=== PATIENT | male | born 1940 | race Caucasian/White ===

== ENCOUNTER → 2016-12-30 | Outpatient (CLI) | payer MEDICARE, BC ==
[~2016-12-30] MED LIST: 3N1 COMMODE MC; ATOR20TA38 PO; BEN25 PO; CARV3.1260 PO; DOCU-144 PO; DONE5TAB7 PO; DULR PR; HYDR-3504 PO; LACT1CAP56 PO; LORA1TAB PO; LOSA25TA5 PO; LYRI100 PO; NA P133E3 PR; TOPI100T42 PO; TRAM50TA2 PO; WALK1EAC23 MC; WARF10TA PO
--- NOTE | 2016-12-30 16:37 | RADRPT ---
PROCEDURE: XR pelvis/left hip. CLINICAL INDICATION: Hip pain TECHNIQUE: AP pelvis/AP and lateral left hip views available for review. COMPARISON: 06/17/2016 FINDINGS: There is no change in the left total hip replacement with cerclage wires surrounding the proximal fe moral shaft. There is no evidence of loosening of the prosthesis. There is no evidence of hardware f ailure. There is no change in the heterotrophic bone formation adjacent to the left hip replacement . There is moderate to severe right hip osteoarthrosis. This is associated with joint space narrowing, subchondral sclerosis and osteophytosis. There is normal osseous mineralization. No fractures or os seous lesions are identified. The soft tissues are unremarkable. IMPRESSION: Left total hip replacement. Moderate to severe right hip osteoarthrosis. Unchanged from the previous examination RPTAT: HGDB .Chuy Hernández MD, MD Date Time Electronically viewed and signed by .Chuy Hernández MD, on 12/30/2016 16:36 .B/
== END | disposition home or self-care (01) ==
LOC: HKI 13:20
PROVIDERS: ATTEND Orthopaedic Surgery
DX: Z47.1 Aftercare following joint replacement surgery (principal); Z96.642 Presence of left artificial hip joint
CPT/HCPCS: 73502; G0463

== ENCOUNTER 2019-02-17 15:45 | Inpatient (IN) | payer MEDICARE, BC ==
[~2019-02-17] VITALS: Ht 182.9 cm; Wt 117.0 kg
[~2019-02-17 15:45] MED LIST changes: +BISA10SU75 PR; -DULR PR; +LOSA25TA12 PO; -LOSA25TA5 PO; +TOPI100T PO; -TOPI100T42 PO
[2019-02-17 16:00] VITALS: BP 118/79; PULSE 78; RESP 18
[2019-02-17] MEDS ORDERED: MAGNESIUM HYDROXIDE 30ML CUP PO PRN (16:30)
[2019-02-17] MEDS ORDERED: ACETAMINOPHEN 325 MG TAB PO PRN (16:30)
[2019-02-17] MEDS ORDERED: PENDING SANTYL ORDER FOR WOUND CARE XX PRN (16:30)
[2019-02-17 17:12] VITALS: Ht 182.9 cm; Wt 117.0 kg
[2019-02-17 19:45] VITALS: BP 123/73; PULSE 74; RESP 18
[2019-02-17] MEDS: IPRATROPIUM (NEB) 0.5 MG/2.5 ML AMP HHN SCH (20:12)
[2019-02-17] MEDS: PREGABALIN 50 MG CAP PO SCH (21:00)
[2019-02-17] MEDS: APIXABAN 5 MG TABLET PO SCH (21:05)
[2019-02-17] MEDS: ATORVASTATIN 20 MG TAB PO SCH (21:06)
[2019-02-17] MEDS: FUROSEMIDE 40 MG TAB PO SCH (21:06)
[2019-02-17] MEDS: SENNA TAB PO SCH (21:06)
[2019-02-17] MEDS: OXYBUTYNIN 5 MG TAB PO SCH (21:07)
[2019-02-17] MEDS: MEMANTINE 5 MG TAB PO SCH (21:07)
[2019-02-17] MEDS: traZODone 50 MG TAB PO SCH (21:07)
[2019-02-17] MEDS: DOCUSATE SODIUM 100 MG CAP PO SCH (21:07)
[2019-02-18] MEDS: IPRATROPIUM (NEB) 0.5 MG/2.5 ML AMP HHN SCH ×4 (01:56→21:31)
[2019-02-18 02:00] VITALS: BP 116/82; PULSE 72; RESP 18
[2019-02-18] MEDS: DOCUSATE SODIUM 100 MG CAP PO SCH ×2 (10:02→21:00)
[2019-02-18] MEDS: OXYBUTYNIN 5 MG TAB PO SCH ×2 (10:03→21:24)
[2019-02-18] MEDS: MEMANTINE 5 MG TAB PO SCH ×2 (10:03→21:24)
[2019-02-18] MEDS: APIXABAN 5 MG TABLET PO SCH ×2 (10:03→21:23)
[2019-02-18] MEDS: ASCORBIC ACID 500 MG TAB PO SCH (10:03)
[2019-02-18] MEDS: ROPINIROLE 0.25 MG TAB PO SCH (10:04)
[2019-02-18] MEDS: CYANOCOBALAMIN 500 MCG TAB PO SCH (10:04)
[2019-02-18] MEDS: PREGABALIN 50 MG CAP PO SCH ×2 (10:05→21:24)
[2019-02-18] MEDS: FUROSEMIDE 40 MG TAB PO SCH ×2 (10:17→21:23)
--- NOTE | 2019-02-18 10:26 | HP ---
DATE OF ADMISSION: 02/17/2019 CHIEF COMPLAINT: Acute respiratory failure, acute pulmonary embolism, deep vein thrombosis. HISTORY OF PRESENT ILLNESS: This is a 78-year-old male with a past medical history of coronary arter y disease, history of coronary artery bypass graft, history of atrial fibrillation, on anticoagulatio n, history of congestive heart failure, previous history of deep vein thrombosis, status post inferio r vena cava filter, who initially presented to [facility] on 01/18/2019 after he sustained a ground level fall. The patient at that time had a left femoral fracture. The patient underwent o pen reduction internal fixation. The patient was then stabilized and transferred to retirement facility. While at retirement facility, the patient then developed shortness of breath, was kadi dmitted back to [facility]. The patient had a CT angio, which showed findings of acute de ep vein thrombosis and pulmonary embolism. The patient was seen by filling winder, guard entrance registrar, was placed on anticoagulation with Eliquis. The patient was then subsequently stabilized. The patient a lso noted to have a congestive heart failure exacerbation at outside hospital, was given diuretic the rapy. The patient, however, had a significant decline in his premorbid state and also developed crit ica care myopathy. As a result, he was transferred to [facility] for continued care. Upon my evaluation of the patient at this time, he is currently stable, describing lower extremity ed carmen. He denies any hemoptysis, hematemesis or hematochezia. PAST MEDICAL HISTORY: As stated above, history of coronary artery disease, history of hypertension, history of atrial fibrillation, history of deep vein thrombosis, history of neuropathy. PAST SURGICAL HISTORY: Status post coronary artery bypass graft, status post open reduction internal fixation of left femoral fracture. FAMILY HISTORY: No family history of kidney disease. SOCIAL HISTORY: He does not drink, smoke or do drugs. MEDICATIONS: The patient's medications have been reviewed. ALLERGIES: NO KNOWN DRUG ALLERGIES. REVIEW OF SYSTEMS: A 14-point review of systems was conducted. Pertinent positives stated in HPI, o therwise negative. PHYSICAL EXAMINATION: VITAL SIGNS: Blood pressure is 116/82, respirations 18, pulse 72, temperature is 97.8. HEENT: Head is normocephalic. NECK: Supple. HEART: Regular rate. LUNGS: Show diminished breath sounds at the base. ABDOMEN: Soft, nontender to palpation without rebound or guarding. EXTREMITIES: Negative for clubbing, cyanosis. Positive edema, right greater than left. The patient 's left lower extremity also has a soft cast. DERMATOLOGIC: No rashes. MUSCULOSKELETAL: No joint effusion. NEUROLOGIC: No focal deficits. MEDICATIONS: The patient's medications have been reviewed. LABORATORY DATA: Currently pending. ASSESSMENT AND PLAN: This is a 78-year-old male who presents with: 1. Acute pulmonary embolism, right lower extremity deep vein thrombosis. The patient is currently o n full anticoagulation. Plan is to continue Eliquis. We will monitor closely. Consider hematology evaluation. 2. Acute hypoxemic respiratory failure, etiology is secondary to acute pulmonary embolism, possible congestive heart failure exacerbation. Continue medical management with supplemental oxygen. Contin ue intermittent diuretic therapy as needed. Continue anticoagulation therapy, and monitor closely. 3. History of coronary artery disease, history of coronary artery bypass graft. Continue current me dical management. Consider cardiology evaluation. 4. Hypertension. Continue current blood pressure regimen. 5. Dyslipidemia. Continue statin therapy. 6. Acute heart failure. The patient appears to be mildly decompensated. Continue diuretic regimen and monitor closely. 7. Neuropathy. 8. Restless leg syndrome. Continue Lyrica and Requip. 9. History of deep vein thrombosis with IVC filter placement. 10. Gastrointestinal and deep vein thrombosis prophylaxis. 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 Continue physical therapy and occupational therapy per rehabilitation. 12. Cognitive decline. Continue Namenda. 13. Lower extremity wound. Continue wound care. 14. Constipation. Continue current bowel regimen. 15. Left distal femur fracture status post open reduction internal fixation. Continue physical aerodynamicist apy. 16. History of aortic aneurysm. Continue to monitor. 17. Diabetes type 2. Continue to monitor, Accu-Cheks. Please note I spent an additional 30 minutes of ivle-cc-oriv time with the patient, discussing advanc ed directives and code status. The patient is FULL CODE. Dictated By: KANDI OKEEFE DO NR/NTS Conf#: [id number] DID#: [id number] CC: FELIPE GRULLON MD; MELISSA CARRINGTON DO;*EndCC*
[2019-02-18 10:27] VITALS: PULSE 54; RESP 18
[2019-02-18] MEDS: BISACODYL 10 MG SUPP PR PRN (12:48)
[2019-02-18 14:56] VITALS: BP 137/67; PULSE 58; RESP 18
--- NOTE | 2019-02-18 16:08 | CONS ---
DATE OF ADMISSION: 02/17/2019 DATE OF CONSULTATION: 02/18/2019 REHABILITATION POST-ADMISSION PHYSICIAN EVALUATION REHABILITATION IMPAIRMENT CATEGORY: Critical illness myopathy, debility status post congestive heart failure exacerbation. ACTIVE COMORBIDITIES: 1. Recent left distal femur fracture status post open reduction internal fixation. 2. Acute on chronic renal failure. 3. Acute on chronic congestive heart failure. 4. Atrial fibrillation. 5. History of non-ST elevation myocardial infarction. 6. History of deep venous thrombosis and pulmonary embolism, status post inferior vena cava filter. 7. Diabetes mellitus type 2. 8. History of aortic aneurysm. 9. Venous stasis changes. 10. Incontinent dermatitis in the sacral region. 11. Right medial malleolus ulceration. 12. Impairments in self-care and mobility. HISTORY OF PRESENT ILLNESS: The patient is a 78-year-old gentleman with a history of multiple medical comorbidities who had a recent left femur fracture requiring ORIF for which patient was transferred to a [facility] facility. The patient was noted to have increased shortness of breath at the [facility]p facility and was readmitted to [facility]. The patient was noted to have acute DVT and pulmonary embolus. The patient also noted to have congestive heart failure in addition to significant proximal weakness, presumed secondary to critical illness myopathy. The patient has now been cleared to transfer to the rehabilitation unit for comprehensive interdisciplinary rehab care. FUNCTIONAL HISTORY: Prior to recent events, he was independent in self-care tasks and mobility. Currently, he requires maximal assist for self-care and mobility tasks. I have reviewed the preadmission screen and patient's current functional status is consistent with the preadmission screen. FAMILY AND SOCIAL HISTORY: The patient lives at home with family and hopes to return there upon discharge. PAST MEDICAL HISTORY: 1. Coronary artery disease with history of non-ST elevation NC, history of coronary artery bypass graft. 2. Atrial fibrillation. 3. Hypertension. 4. History of deep venous thrombosis and pulmonary embolus with inferior vena cava filter. 5. Neuropathy. 6. Hypertension. 7. Diabetes mellitus type 2. 8. History of aortic aneurysm. CURRENT MEDICATIONS: 1. Albuterol inhaler. 2. Eliquis 5 mg p.o. b.i.d. 3. Vitamin C 1000 mg p.o. daily. 4. Lipitor 20 mg p.o. q.p.m. 5. Coreg 3.125 mg p.o. b.i.d. 6. Lasix 40 mg p.o. b.i.d. 7. Bryan p.r.n. 8. Atrovent inhaler. 9. Namenda 5 mg p.o. b.i.d. 10. Ditropan 5 mg p.o. b.i.d. 11. Lyrica 200 mg p.o. b.i.d. 12. Senokot. 13. Desyrel 150 mg p.o. at bedtime. 14. Requip 0.5 mg p.o. daily. ALLERGIES: The patient with no known drug allergies. PHYSICAL EXAMINATION: VITAL SIGNS: He is currently afebrile with stable vital signs. HEENT: Extraocular motions appear intact. Oropharynx clear. NECK: Supple. LUNGS: Clear anteriorly. CARDIAC: S1, S2. ABDOMEN: Soft, nontender, positive bowel sounds. Extremity exam does reveal venous stasis changes and right medial malleolar ulceration, left lower extremity skin tear. NEUROLOGIC: He is awake and alert and oriented x3, can follow simple 1-step commands. He demonstrates antigravity strength in bilateral upper extremity and the right lower extremity. Dorsiflexion and plantar flexion intact on the left. PLAN: The patient has been admitted for comprehensive interdisciplinary acute rehab and is anticipated to tolerate 3 hours of daily therapy in divided doses for at least 5/7 days a week. The treatment plan will include: 1. Physical therapy to focus on bed mobility, transfers, wheelchair mobility, and limited household ambulation with the goal of having patient reach a min to standby assist level. 2. Occupational therapy to focus on hygiene, grooming, dressing, bathing, and toileting activities with goal of having patient reach standby assist level. 3. Rehabilitation nursing for carryover of therapeutic interventions, the goal of continent of bowel and bladder, and the goal of pain adequately managed on oral medications. We will also work on improved skin integrity. ESTIMATED LENGTH OF STAY: 14 days. DISPOSITION GOAL: Home. REHABILITATION BARRIER: Pain. INTERVENTION FOR BARRIER: Interdisciplinary approach. I acknowledge that I acknowledge that I performed a full physical examination on this patient within 24 hours of admission to the rehabilitation unit and believe the patient is a good candidate for comprehensive interdisciplinary rehab care and is anticipated to make reasonable goals in a reasonable period of time as outlined above. Dictated By: FELIPE DUMONT/BOONE Conf#: [id number] [facility]#: [id number] DOUG
[2019-02-18 19:30] VITALS: BP 126/84; PULSE 80; RESP 18
[2019-02-18] MEDS: SENNA TAB PO SCH (21:00)
[2019-02-18] MEDS: ATORVASTATIN 20 MG TAB PO SCH (21:23)
[2019-02-18] MEDS: traZODone 50 MG TAB PO SCH (21:24)
[2019-02-19] MEDS: IPRATROPIUM (NEB) 0.5 MG/2.5 ML AMP HHN SCH ×4 (01:54→20:47)
[2019-02-19 02:00] VITALS: BP 122/75; PULSE 68; RESP 18
[2019-02-19 07:00] VITALS: BP 136/76; PULSE 71; RESP 20
--- NOTE | 2019-02-19 08:40 | PN ---
DATE: 02/19/2019 SUBJECTIVE: The patient was stable overnight. No events noted. No hemoptysis, hematemesis or hemat ochezia. OBJECTIVE: VITAL SIGNS: Blood pressure is 122/74, respirations 18, pulse 68, temperature 98.2. HEENT: Head is normocephalic. NECK: Supple. HEART: Regular rate. LUNGS: Show diminished breath sounds at the base. ABDOMEN: Soft, nontender to palpation without rebound or guarding. EXTREMITIES: Negative for clubbing, cyanosis. Positive edema. DERMATOLOGIC: No rashes. MUSCULOSKELETAL: No joint effusion. NEUROLOGIC: No change in exam. MEDICATIONS: Reviewed. LABORATORY DATA: From 02/19/2019 was reviewed. ASSESSMENT AND PLAN: 1. Acute pulmonary embolism, acute right lower extremity deep vein thrombosis. Etiology is felt to be secondary to recent hip fracture, however, the patient does have a history of multiple DVTs. Uncl ear if there is underlying hypercoagulable disorder. We will consider hematology evaluation. Contin ue Eliquis. Monitor closely. 2. Acute hypoxemic respiratory failure secondary to acute pulmonary embolism, congestive heart failu re exacerbation. The patient is currently stable on 3 liters nasal cannula. Continue current medica l management. Continue intermittent diuretic therapy. Continue anticoagulation. 3. Alkalosis. Etiology may be compensatory versus primary metabolic due to diuretic therapy. Plan is to check an ABG. We will consider starting the patient Diamox. Monitor closely. 4. Coronary artery disease, status post coronary artery bypass graft. Continue medical management. 5. Hypertension. Continue current blood pressure regimen. 6. Dyslipidemia. Continue statin therapy. 7. Acute diastolic heart failure. The patient is mildly decompensated, continue current diuretic re gimen. Adjust as stated above. 8. Neuropathy/restless leg syndrome. Continue Lyrica and Requip. 9. History of deep vein thrombosis with inferior vena cava filter placement. 10. Gastrointestinal and deep vein thrombosis prophylaxis. 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 Continue physical therapy and occupation therapy. 12. Cognitive decline. Continue Namenda. 13. Lower extremity wounds. Continue wound care. 14. Constipation. Continue current bowel regimen. 15. Left distal femoral fracture status post open reduction internal fixation. 16. History of aortic aneurysm. 17. Diabetes type 2. Continue to monitor. Continue Accu-Cheks. Dictated By: KANDI OKEEFE DO NR/NTS Conf#: [id number] [facility]#: [id number] CC: MELISSA CARRINGTON DO; FELIPE GRULLON MD;*[facility]*
[2019-02-19] MEDS ORDERED: ASCORBIC ACID 250 MG TAB PO SCH (09:00)
[2019-02-19] MEDS: PREGABALIN 50 MG CAP PO SCH ×2 (10:28→21:33)
[2019-02-19] MEDS: MULTIVITAMINS THERAPEUTIC TAB PO SCH (10:29)
[2019-02-19] MEDS: ZINC SULFATE 220 MG CAP PO SCH (10:30)
[2019-02-19] MEDS: CYANOCOBALAMIN 500 MCG TAB PO SCH (10:30)
[2019-02-19] MEDS: OXYBUTYNIN 5 MG TAB PO SCH ×2 (10:31→21:34)
[2019-02-19] MEDS: ROPINIROLE 0.25 MG TAB PO SCH (10:31)
[2019-02-19] MEDS: MEMANTINE 5 MG TAB PO SCH ×2 (10:32→21:34)
[2019-02-19] MEDS: APIXABAN 5 MG TABLET PO SCH ×2 (10:32→21:34)
[2019-02-19] MEDS: ASCORBIC ACID 500 MG TAB PO SCH (10:39)
[2019-02-19] MEDS: ACETAZOLAMIDE 250 MG TAB PO SCH ×2 (10:43→21:34)
[2019-02-19] MEDS: DOCUSATE SODIUM 100 MG CAP PO SCH ×2 (10:47→21:33)
--- NOTE | 2019-02-19 13:48 | CONS ---
Assessment/Plan Assessment/Plan Hospital Course (Demo Recall) Acute PE/DVT: occurred on coumadin. Now Eliquis Acute on chronic systolic CHF: being diuresed Paroxysmal afib: not previously present, occurred during recent hospitalization. On Eliquis. Appears to be in sinus on exam CAD s/p CABG 2009 AAA: now >5cm per pt and plan for EVAR soon with Dr. Abreu Ischemic cardiomyopathy EF 40-45% Trifascicular block h/o DVT previously on coumadin and s/p IVC HTN CKD (Cr baseline 1.3) -continue bumex 1mg IV BID -Eliquis 5mg BID -lipitor 20mg -coreg 3.125mg BID Consultation Date/Type/Reason Admit Date/Time February 17, 2019 at 15:45 Date of Consultation: February 19, 2019 Type of Consult Cardiology Reason for Consultation CHF Requesting Provider: KANDI OKEEFE DO Date/Time of Note DATE: 02/19/19 TIME: 13:39 Hx of Present Illness 78 yo M with a h/o CAD s/p CABG 2009, AAA (now >5cm per pt and plan for EVAR soon), chronic systolic CHF, ischemic cardiomyopathy EF 40-45%, trifascicular block, h/o DVT previously on coumadin and s/p IVC, HTN, CKD (Cr baseline 1.3), who is here for rehab. He recently had a fall and left femur fracture for which he had ORIF at [facility]. He was sent to a SNF where he developed dyspnea and was found to have recurrent DVT and PE even on therapeutic coumadin. He still has dyspnea. No chest pain. Leg edema worse than baseline. per hPI Past Medical History per HPI Home Meds Active Scripts Front Wheel Walker* (Front Wheel Walker*) 1 Each Dme, 1 EACH [facility] DIRECTED, #1 DME 0 Refills Prov:KAZ HERNANDEZ 05/19/15 3 N 1 Commode* (3 N 1 Commode*) 1 Each Dme, 1 EACH MC DIRECTED, #1 DME 0 Refills Prov:KAZ HERNANDEZ 05/19/15 Warfarin Sodium* (Coumadin*) 10 Mg Tablet, 10 MG PO DAILY PRN for PAIN, #90 TAB Prov:KAZ HERNANDEZ 05/19/15 Tramadol HCl (Tramadol HCl) 50 Mg Tab, 50 MG PO Q6, #60 TAB Prov:KAZ HERNANDEZ 05/19/15 Hydrocodone Bit-Acetaminophen (Hydrocodone-APAP) 1 Tab Tab, 1 TAB PO Q4H PRN for PAIN LEVEL 1-5, #90 Prov:KAZ HERNANDEZ 05/19/15 Pregabalin* (Lyrica*) 100 Mg Cap, 400 MG PO DAILY, #60 Prov:KAZ HERNANDEZ 05/19/15 Na Phos,M-B/Na Phos,Di-Ba (Bl Enema Single) 133 Ml Soln, 133 ML WI DAILY PRN for CONSTIPATION, #60 ENEMA Prov:KAZ HERNANDEZ 05/19/15 Docusate Sodium* (Colace*) 100 Mg Cap, 100 MG PO BID, #60 Prov:KAZ HERNANDEZ 05/19/15 Diphenhydramine Hcl* (Benadryl*) 25 Mg Cap, 25 MG PO Q6H PRN for PRURITUS, #60 CAP Prov:KAZ HERNANDEZ 05/19/15 Bisacodyl* (Bisacodyl*) 10 Mg Supp, 10 MG WI Q12H PRN for CONSTIPATION, #30 SUPP Prov:KAZ HERNANDEZ 05/19/15 Reported Medications Lactobacillus Combo No.11 (Probiotic) 1 Each Cap.sprink, 1 CAP PO DAILY, CAP 05/16/15 Lorazepam* (Lorazepam*) 1 Mg Tablet, 1 MG PO HS PRN for SLEEP, TAB 05/16/15 Losartan Potassium* (Losartan Potassium*) 25 Mg Tablet, 25 MG PO DAILY, TAB 05/16/15 Donepezil* (Donepezil*) 5 Mg Tablet, 10 MG PO DAILY, TAB 01/19/15 Carvedilol* (Carvedilol*) 3.125 Mg Tablet, 3.125 MG PO BID, TAB 01/19/15 Atorvastatin Calcium* (Atorvastatin Calcium*) 20 Mg Tablet, 20 MG PO HS, TAB 01/19/15 Topiramate* (Topamax*) 100 Mg Tablet, 100 MG PO HS 06/10/13 Medications Current Medications Docusate Sodium (Colace) 100 mg BID PO Last administered on 02/19/19at 10:47; Admin Dose 100 MG; Start 02/17/19 at 21:00 Senna (Senokot) 1 tab HS PO Last administered on 02/17/19at 21:06; Admin Dose 1 TAB; Start 02/17/19 at 21:00 Magnesium Hydroxide (Milk Of Mag) 30 ml BID PRN PO CONSTIPATION; Start 02/17/19 at 16:30 Lactulose (Enulose) 20 gm DAILY PRN PO CONSTIPATION; Start 02/17/19 at 16:30 Bisacodyl (Dulcolax Supp) 10 mg DAILY PRN WI CONSTIPATION Last administered on 02/18/19at 12:48; Admin Dose 10 MG; Start 02/17/19 at 16:30 Acetaminophen (Tylenol Tab) 650 mg Q4H PRN PO PAIN; Start 02/17/19 at 16:30 Miscellaneous Information (Pending Santyl Order For Wound Care) This patient h a... PRN PRN XX WOUND CARE; Start 02/17/19 at 16:30 Apixaban (Eliquis) 5 mg BID PO Last administered on 02/19/19 10:32; Admin Dose 5 MG; Start 02/17/19 at 21:00 Ascorbic Acid (Vitamin C) 1,000 mg DAILY PO Last administered on 02/19/19 10:39; Admin Dose 1,000 MG; Start 02/18/19 at 09:00 Atorvastatin Calcium (Lipitor) 20 mg HS PO Last administered on 02/18/19 21:23; Admin Dose 20 MG; Start 02/17/19 at 21:00 Carvedilol (Coreg) 3.125 mg BID PO Last administered on 02/19/19 10:34; Admin Dose 3.125 MG; Start 02/17/19 at 21:00 Cyanocobalamin (Vitamin B12) 1,000 mcg DAILY PO Last administered on 02/19/19 10:30; Admin Dose 1,000 MCG; Start 02/18/19 at 09:00 Acetaminophen/ Hydrocodone Bitart ([place] (10/325)) 1 tab Q12H PRN PO MODERATE PAIN LEVEL 4-6; Start 02/17/19 at 17:00 Ipratropium [place] (Atrovent 0.02% (Neb)) 0.5 mg Q6H RESP THERAPY HHN Last administered on 02/19/19 09:26; Admin Dose 0.5 MG; Start 02/17/19 at 20:00 Memantine (Namenda) 5 mg BID PO Last administered on 02/19/19 10:32; Admin Dose 5 MG; Start 02/17/19 at 21:00 Oxybutynin Chloride (Ditropan) 5 mg BID PO Last administered on 02/19/19 10:31; Admin Dose 5 MG; Start 02/17/19 at 21:00 Pregabalin (Lyrica) 200 mg BID PO Last administered on 02/19/19 10:28; Admin Dose 200 MG; Start 02/17/19 at 21:00 Trazodone HCl (Desyrel) 150 mg HS PO Last administered on 02/18/19 21:24; Admin Dose 150 MG; Start 02/17/19 at 21:00 Ropinirole HCl (Requip) 0.5 mg DAILY PO Last administered on 02/19/19 10:31; Admin Dose 0.5 MG; Start 02/18/19 at 09:00 Multivitamins Therapeutic (Theragran) 1 tab DAILY PO Last administered on 02/19/19 10:29; Admin Dose 1 TAB; Start 02/19/19 at 09:00 Zinc Sulfate (Zinc Sulfate) 220 mg DAILY PO Last administered on 02/19/19 10:30; Admin Dose 220 MG; Start 02/19/19 at 09:00 Acetazolamide (Diamox) 250 mg BID PO Last administered on 02/19/19 10:43; Admin Dose 250 MG; Start 02/19/19 at 09:00 Bumetanide (Bumex) 1 mg BID DIURETICS IV ; Start 02/19/19 at 18:00 Patient Own Medication 1 ea DAILY PRN PO CONSTIPATION; Start 02/19/19 at 12:00 Allergies: Coded Allergies: No Known Allergy (Unverified , 05/16/15) Social History Smoking Status: Former smoker Exam/Review of Systems Vital Signs Vitals Vital Signs Date Temp Pulse Resp B/P (MAP) Pulse Ox O2 O2 Flow FiO2 Time Delivery Rate 02/19/19 60 20 92 Nasal 2.0 09:34 Cannula 02/19/19 97.2 136/76 07:00 (96) Intake and Output 02/18/19 02/18/19 02/19/19 1515:00 23:00 07:00 IntakeIntake Total 1250 ml 120 ml 250 ml OutputOutput Total 1 ml BalanceBalance 1250 ml 119 ml 250 ml Exam Constitutional: alert, oriented Psych: no complaints, nl mood/affect Head: normocephalic, atraumatic Neck: jvd (9cm) Respiratory: crackles/rales (mild at bases); No clear to auscultation Cardiovascular: edema (2+), systolic murmur (2/6 AMRIT); No regular rate and rhythm Gastrointestinal: soft, non-tender; No distended Musculoskeletal: No nl extremities to inspection Neurological: nl mental status, nl speech Labs Result Diagram: 02/19/1955402/19/19 0555 Results 24hrs Laboratory Tests Test 02/18/19 14:25 02/19/19 05:55 White Blood Count 7.4 6.1 Red Blood Count 4.00 #L 3.72 L Hemoglobin 12.5 #L 11.6 L Hematocrit 39.5 #L 36.9 L Mean Corpuscular Volume 98.8 99.2 Mean Corpuscular Hemoglobin 31.3 31.2 Mean Corpuscular Hemoglobin Concent 31.6 L 31.4 L Red Cell Distribution Width 15.9 H 16.2 H Platelet Count 130 L 121 L Mean Platelet Volume 13.0 #H 12.1 H Immature Granulocytes % 0.700 H 0.200 Neutrophils % 76.8 68.5 Lymphocytes % 9.5 L 16.5 Monocytes % 11.6 H 12.9 H Eosinophils % 1.1 1.6 Basophils % 0.3 0.3 Nucleated Red Blood Cells % 0.0 0.0 Immature Granulocytes # 0.050 H 0.010 Neutrophils # 5.7 4.2 Lymphocytes # 0.7 L 1.0 Monocytes # 0.9 0.8 Eosinophils # 0.1 0.1 Basophils # 0.0 0.0 Nucleated Red Blood Cells # 0.0 0.0 Sodium Level 142 Potassium Level 4.2 Chloride Level 94 L Carbon Dioxide Level 42 *H Anion Gap 6 Blood Urea Nitrogen 31 H Creatinine 1.17 Est Glomerular Filtrat Rate mL/min Glucose Level 130 Calcium Level 10.0 Phosphorus Level 3.9 Magnesium Level 2.3 Medications Medications Current Medications Docusate Sodium (Colace) 100 mg BID PO Last administered on 02/19/19at 10:47; Admin Dose 100 MG; Start 02/17/19 at 21:00 Senna (Senokot) 1 tab HS PO Last administered on 02/17/19at 21:06; Admin Dose 1 TAB; Start 02/17/19 at 21:00 Magnesium Hydroxide (Milk Of Mag) 30 ml BID PRN PO CONSTIPATION; Start 02/17/19 at 16:30 Lactulose (Enulose) 20 gm DAILY PRN PO CONSTIPATION; Start 02/17/19 at 16:30 Bisacodyl (Dulcolax Supp) 10 mg DAILY PRN WI CONSTIPATION Last administered on 02/18/19at 12:48; Admin Dose 10 MG; Start 02/17/19 at 16:30 Acetaminophen (Tylenol Tab) 650 mg Q4H PRN PO PAIN; Start 02/17/19 at 16:30 Miscellaneous Information (Pending Santyl Order For Wound Care) This patient cornejo... PRN PRN XX WOUND CARE; Start 02/17/19 at 16:30 Apixaban (Eliquis) 5 mg BID PO Last administered on 02/19/19 10:32; Admin Dose 5 MG; Start 02/17/19 at 21:00 Ascorbic Acid (Vitamin C) 1,000 mg DAILY PO Last administered on 02/19/19 10: 39; Admin Dose 1,000 MG; Start 02/18/19 at 09:00 Atorvastatin Calcium (Lipitor) 20 mg HS PO Last administered on 02/18/19 21:23; Admin Dose 20 MG; Start 02/17/19 at 21:00 Carvedilol (Coreg) 3.125 mg BID PO Last administered on 02/19/19 10:34; Admin Dose 3.125 MG; Start 02/17/19 at 21:00 Cyanocobalamin (Vitamin B12) 1,000 mcg DAILY PO Last administered on 02/19/19 10:30; Admin Dose 1,000 MCG; Start 02/18/19 at 09:00 Acetaminophen/ Hydrocodone Bitart ([place] (10/325)) 1 tab Q12H PRN PO MODERATE PAIN LEVEL 4-6; Start 02/17/19 at 17:00 Ipratropium [place] (Atrovent 0.02% (Neb)) 0.5 mg Q6H RESP THERAPY HHN Last administered on 02/19/19 09:26; Admin Dose 0.5 MG; Start 02/17/19 at 20:00 Memantine (Namenda) 5 mg BID PO Last administered on 02/19/19 10:32; Admin Dose 5 MG; Start 02/17/19 at 21:00 Oxybutynin Chloride (Ditropan) 5 mg BID PO Last administered on 02/19/19 10:31; Admin Dose 5 MG; Start 02/17/19 at 21:00 Pregabalin (Lyrica) 200 mg BID PO Last administered on 02/19/19 10:28; Admin Dose 200 MG; Start 02/17/19 at 21:00 Trazodone HCl (Desyrel) 150 mg HS PO Last administered on 02/18/19 21:24; Admin Dose 150 MG; Start 02/17/19 at 21:00 Ropinirole HCl (Requip) 0.5 mg DAILY PO Last administered on 02/19/19 10:31; Admin Dose 0.5 MG; Start 02/18/19 at 09:00 Multivitamins Therapeutic (Theragran) 1 tab DAILY PO Last administered on 02/19/19 10:29; Admin Dose 1 TAB; Start 02/19/19 at 09:00 Zinc Sulfate (Zinc Sulfate) 220 mg DAILY PO Last administered on 02/19/19 10:30; Admin Dose 220 MG; Start 02/19/19 at 09:00 Acetazolamide (Diamox) 250 mg BID PO Last administered on 02/19/19 10:43; Admin Dose 250 MG; Start 02/19/19 at 09:00 Bumetanide (Bumex) 1 mg BID DIURETICS IV ; Start 02/19/19 at 18:00 Patient Own Medication 1 ea DAILY PRN PO CONSTIPATION; Start 02/19/19 at 12:00 BIENVENIDO CAMARENA February 19, 2019 13:48
[2019-02-19 14:00] VITALS: BP 113/74; PULSE 82; RESP 20
--- NOTE | 2019-02-19 14:09 | PN ---
Date/Time of Note Date/Time of Note DATE: 02/19/19 TIME: 14:08 Subjective Up to chair Objective Vital Signs Date Temp Pulse Resp B/P (MAP) Pulse Ox O2 O2 Flow FiO2 Time Delivery Rate 02/19/19 60 20 92 Nasal 2.0 09:34 Cannula 02/19/19 97.2 136/76 07:00 (96) Intake and Output 02/18/19 02/18/19 02/19/19 1515:00 23:00 07:00 IntakeIntake Total 1250 ml 120 ml 250 ml OutputOutput Total 1 ml BalanceBalance 1250 ml 119 ml 250 ml Exam pulm-cta abd-soft max x 2 Results/Medications Result Diagram: 02/19/19 0555 02/19/19 0555 Results 24 hrs Laboratory Tests Test 02/18/19 14:25 02/19/19 05:55 White Blood Count 7.4 6.1 Red Blood Count 4.00 #L 3.72 L Hemoglobin 12.5 #L 11.6 L Hematocrit 39.5 #L 36.9 L Mean Corpuscular Volume 98.8 99.2 Mean Corpuscular Hemoglobin 31.3 31.2 Mean Corpuscular Hemoglobin Concent 31.6 L 31.4 L Red Cell Distribution Width 15.9 H 16.2 H Platelet Count 130 L 121 L Mean Platelet Volume 13.0 #H 12.1 H Immature Granulocytes % 0.700 H 0.200 Neutrophils % 76.8 68.5 Lymphocytes % 9.5 L 16.5 Monocytes % 11.6 H 12.9 H Eosinophils % 1.1 1.6 Basophils % 0.3 0.3 Nucleated Red Blood Cells % 0.0 0.0 Immature Granulocytes # 0.050 H 0.010 Neutrophils # 5.7 4.2 Lymphocytes # 0.7 L 1.0 Monocytes # 0.9 0.8 Eosinophils # 0.1 0.1 Basophils # 0.0 0.0 Nucleated Red Blood Cells # 0.0 0.0 Sodium Level 142 Potassium Level 4.2 Chloride Level 94 L Carbon Dioxide Level 42 *H Anion Gap 6 Blood Urea Nitrogen 31 H Creatinine 1.17 Est Glomerular Filtrat Rate mL/min Glucose Level 130 Calcium Level 10.0 Phosphorus Level 3.9 Magnesium Level 2.3 Medications Current Medications Docusate Sodium (Colace) 100 mg BID PO Last administered on 02/19/19 10:47; Admin Dose 100 MG; Start 02/17/19 at 21:00 Senna (Senokot) 1 tab HS PO Last administered on 02/17/19 21:06; Admin Dose 1 TAB; Start 02/17/19 at 21:00 Magnesium Hydroxide (Milk Of Mag) 30 ml BID PRN PO CONSTIPATION; Start 02/17/19 at 16:30 Lactulose (Enulose) 20 gm DAILY PRN PO CONSTIPATION; Start 02/17/19 at 16:30 Bisacodyl (Dulcolax Supp) 10 mg DAILY PRN [place] CONSTIPATION Last administered on 02/18/19 12:48; Admin Dose 10 MG; Start 02/17/19 at 16:30 Acetaminophen (Tylenol Tab) 650 mg Q4H PRN PO PAIN; Start 02/17/19 at 16:30 Miscellaneous Information [facility] This patient cornejo... PRN PRN XX WOUND CARE; Start 02/17/19 at 16:30 Apixaban (Eliquis) 5 mg BID PO Last administered on 02/19/19 10:32; Admin Dose 5 MG; Start 02/17/19 at 21:00 Ascorbic Acid (Vitamin C) 1,000 mg DAILY PO Last administered on 02/19/19 10:39; Admin Dose 1,000 MG; Start 02/18/19 at 09:00 Atorvastatin Calcium (Lipitor) 20 mg HS PO Last administered on 02/18/19 21:23; Admin Dose 20 MG; Start 02/17/19 at 21:00 Carvedilol (Coreg) 3.125 mg BID PO Last administered on 02/19/19 10:34; Admin Dose 3.125 MG; Start 02/17/19 at 21:00 Cyanocobalamin (Vitamin B12) 1,000 mcg DAILY PO Last administered on 02/19/19 10:30; Admin Dose 1,000 MCG; Start 02/18/19 at 09:00 Acetaminophen/ Hydrocodone Bitart ([place] (10/325)) 1 tab Q12H PRN PO MODERATE PAIN LEVEL 4-6; Start 02/17/19 at 17:00 Ipratropium [place] (Atrovent 0.02% (Neb)) 0.5 mg Q6H RESP THERAPY HHN Last administered on 02/19/19 09:26; Admin Dose 0.5 MG; Start 02/17/19 at 20:00 Memantine (Namenda) 5 mg BID PO Last administered on 02/19/19 10:32; Admin Dose 5 MG; Start 02/17/19 at 21:00 Oxybutynin Chloride (Ditropan) 5 mg BID PO Last administered on 02/19/19 10:31; Admin Dose 5 MG; Start 02/17/19 at 21:00 Pregabalin (Lyrica) 200 mg BID PO Last administered on 02/19/19 10:28; Admin Dose 200 MG; Start 02/17/19 at 21:00 Trazodone HCl (Desyrel) 150 mg HS PO Last administered on 02/18/19 21:24; Admin Dose 150 MG; Start 02/17/19 at 21:00 Ropinirole HCl (Requip) 0.5 mg DAILY PO Last administered on 02/19/19 10:31; Admin Dose 0.5 MG; Start 02/18/19 at 09:00 Multivitamins Therapeutic (Theragran) 1 tab DAILY PO Last administered on 02/19/19 10:29; Admin Dose 1 TAB; Start 02/19/19 at 09:00 Zinc Sulfate (Zinc Sulfate) 220 mg DAILY PO Last administered on 02/19/19 10:30; Admin Dose 220 MG; Start 02/19/19 at 09:00 Acetazolamide (Diamox) 250 mg BID PO Last administered on 02/19/19 10:43; Admin Dose 250 MG; Start 02/19/19 at 09:00 Bumetanide (Bumex) 1 mg BID DIURETICS IV ; Start 02/19/19 at 18:00 Patient Own Medication 1 ea DAILY PRN PO CONSTIPATION; Start 02/19/19 at 12:00 Assessment/Plan Additional Assessment/Plan rehab- Critical illness myopathy, debility status post congestive heart failure exacerbation. Continue rehab program Recent left distal femur fracture status post open reduction internal fixation. Acute on chronic renal failure. Acute on chronic congestive heart failure. Atrial fibrillation. History of non-ST elevation myocardial infarction. History of deep venous thrombosis and pulmonary embolism, status post inferior vena cava filter. Diabetes mellitus type 2. History of aortic aneurysm. Venous stasis changes. Incontinent, Moisture associated dermatitis in the sacral region. Right medial malleolus ulceration. FELIPE GRULLON MD February 19, 2019 14:09
[2019-02-19] MEDS: BUMETANIDE 1 MG INJ IV SCH (18:52)
[2019-02-19 20:00] VITALS: BP 144/80; PULSE 84; RESP 18
[2019-02-19] MEDS: ATORVASTATIN 20 MG TAB PO SCH (21:33)
[2019-02-19] MEDS: SENNA TAB PO SCH (21:34)
[2019-02-19] MEDS: traZODone 50 MG TAB PO SCH (21:35)
[2019-02-20] MEDS: IPRATROPIUM (NEB) 0.5 MG/2.5 ML AMP HHN SCH ×4 (01:21→20:37)
[2019-02-20 02:00] VITALS: BP 107/77; PULSE 60; RESP 18
[2019-02-20] MEDS: BUMETANIDE 1 MG INJ IV SCH ×2 (06:55→17:31)
[2019-02-20 07:30] VITALS: BP 150/80; PULSE 52; RESP 20
--- NOTE | 2019-02-20 08:22 | PN ---
Date/Time of Note Date/Time of Note DATE: 02/20/19 TIME: 08:22 Subjective No new complaints Objective Vital Signs Date Temp Pulse Resp B/P (MAP) Pulse Ox O2 O2 Flow FiO2 Time Delivery Rate 02/20/19 97.9 60 18 107/77 99 Room Air 02:00 (87) 02/20/19 2.0 01:20 Intake and Output 02/19/19 02/19/19 02/20/19 1515:00 23:00 07:00 IntakeIntake Total 400 ml 800 ml 360 ml OutputOutput Total 400 ml BalanceBalance 400 ml 400 ml 360 ml Exam max of 2 people transfer pulm-cta Results/Medications Result Diagram: 02/19/19 0555 02/19/19 0555 Medications Current Medications Docusate Sodium (Colace) 100 mg BID PO Last administered on 02/19/19 21:33; Admin Dose 100 MG; Start 02/17/19 at 21:00 Senna (Senokot) 1 tab HS PO Last administered on 02/19/19 21:34; Admin Dose 1 TAB; Start 02/17/19 at 21:00 Magnesium Hydroxide (Milk Of Mag) 30 ml BID PRN PO CONSTIPATION; Start 02/17/19 at 16:30 Lactulose (Enulose) 20 gm DAILY PRN PO CONSTIPATION; Start 02/17/19 at 16:30 Bisacodyl (Dulcolax Supp) 10 mg DAILY PRN [place] CONSTIPATION Last administered on 02/18/19at 12:48; Admin Dose 10 MG; Start 02/17/19 at 16:30 Acetaminophen (Tylenol Tab) 650 mg Q4H PRN PO PAIN; Start 02/17/19 at 16:30 Miscellaneous Information (Pending Santyl Order For Wound Care) This patient cornejo... PRN PRN XX WOUND CARE; Start 02/17/19 at 16:30 Apixaban (Eliquis) 5 mg BID PO Last administered on 02/19/19 21:34; Admin Dose 5 MG; Start 02/17/19 at 21:00 Ascorbic Acid (Vitamin C) 1,000 mg DAILY PO Last administered on 02/19/19at 10:39; Admin Dose 1,000 MG; Start 02/18/19 at 09:00 Atorvastatin Calcium (Lipitor) 20 mg HS PO Last administered on 02/19/19 21:33; Admin Dose 20 MG; Start 02/17/19 at 21:00 Carvedilol (Coreg) 3.125 mg BID PO Last administered on 02/19/19 21:34; Admin Dose 3.125 MG; Start 02/17/19 at 21:00 Cyanocobalamin (Vitamin B12) 1,000 mcg DAILY PO Last administered on 02/19/19 10:30; Admin Dose 1,000 MCG; Start 02/18/19 at 09:00 Acetaminophen/ Hydrocodone Bitart ([place] (10/325)) 1 tab Q12H PRN PO MODERATE PAIN LEVEL 4-6; Start 02/17/19 at 17:00 Ipratropium [place] (Atrovent 0.02% (Neb)) 0.5 mg Q6H RESP THERAPY HHN Last administered on 02/20/19 08:13; Admin Dose 0.5 MG; Start 02/17/19 at 20:00 Memantine (Namenda) 5 mg BID PO Last administered on 02/19/19 21:34; Admin Dose 5 MG; Start 02/17/19 at 21:00 Oxybutynin Chloride (Ditropan) 5 mg BID PO Last administered on 02/19/19 21:34; Admin Dose 5 MG; Start 02/17/19 at 21:00 Pregabalin (Lyrica) 200 mg BID PO Last administered on 02/19/19 21:33; Admin Dose 200 MG; Start 02/17/19 at 21:00 Trazodone HCl (Desyrel) 150 mg HS PO Last administered on 02/19/19 21:35; Admin Dose 150 MG; Start 02/17/19 at 21:00 Ropinirole HCl (Requip) 0.5 mg DAILY PO Last administered on 02/19/19 10:31; Admin Dose 0.5 MG; Start 02/18/19 at 09:00 Multivitamins Therapeutic (Theragran) 1 tab DAILY PO Last administered on 02/19/19 10:29; Admin Dose 1 TAB; Start 02/19/19 at 09:00 Zinc Sulfate (Zinc Sulfate) 220 mg DAILY PO Last administered on 02/19/19 10:30; Admin Dose 220 MG; Start 02/19/19 at 09:00 Acetazolamide (Diamox) 250 mg BID PO Last administered on 02/19/19at 21:34; Admin Dose 250 MG; Start 02/19/19 at 09:00 Bumetanide (Bumex) 1 mg BID DIURETICS IV Last administered on 02/20/19at 06:55; Admin Dose 1 MG; Start 02/19/19 at 18:00 Patient Own Medication 1 ea DAILY PRN PO CONSTIPATION; Start 02/19/19 at 12:00 Assessment/Plan Additional Assessment/Plan rehab- Critical illness myopathy, debility status post congestive heart failure exacerbation. Continue rehab treatment plan Recent left distal femur fracture status post open reduction internal fixation. Acute on chronic renal failure. Acute on chronic congestive heart failure. Atrial fibrillation. History of non-ST elevation myocardial infarction. History of deep venous thrombosis and pulmonary embolism, status post inferior vena cava filter. Diabetes mellitus type 2. History of aortic aneurysm. Venous stasis changes. Incontinent, Moisture associated dermatitis in the sacral region. Right medial malleolus ulceration. FELIPE GRULLON MD February 20, 2019 08:22
[2019-02-20] MEDS: ZINC SULFATE 220 MG CAP PO SCH (09:12)
[2019-02-20] MEDS: ASCORBIC ACID 500 MG TAB PO SCH (09:12)
[2019-02-20] MEDS: MULTIVITAMINS THERAPEUTIC TAB PO SCH (09:12)
[2019-02-20] MEDS: APIXABAN 5 MG TABLET PO SCH ×2 (09:13→20:46)
[2019-02-20] MEDS: PREGABALIN 50 MG CAP PO SCH ×2 (09:13→20:45)
[2019-02-20] MEDS: ACETAZOLAMIDE 250 MG TAB PO SCH ×2 (09:13→20:46)
[2019-02-20] MEDS: CYANOCOBALAMIN 500 MCG TAB PO SCH (09:13)
[2019-02-20] MEDS: ROPINIROLE 0.25 MG TAB PO SCH (09:14)
[2019-02-20] MEDS: OXYBUTYNIN 5 MG TAB PO SCH ×2 (09:14→20:45)
[2019-02-20] MEDS: MEMANTINE 5 MG TAB PO SCH ×2 (09:14→20:45)
[2019-02-20] MEDS: DOCUSATE SODIUM 100 MG CAP PO SCH ×2 (09:14→20:45)
--- NOTE | 2019-02-20 10:38 | PN ---
DATE: 02/20/2019 SUBJECTIVE: The patient is stable. No events overnight. The patient states his shortness of breath is improving. The patient also states that he has been having more frequent urination. No other ev ents noted. OBJECTIVE: VITAL SIGNS: Blood pressure is 107/77, respiration 18, temperature 97.9. HEENT: Head is normocephalic. NECK: Supple. HEART: Regular rate. LUNGS: Show diminished breath sounds at the base, left greater than right. ABDOMEN: Soft and nontender to palpation. No rebound or guarding. EXTREMITIES: Negative for clubbing, cyanosis, positive edema. DERMATOLOGIC: No rashes. MUSCULOSKELETAL: No joint effusions. NEUROLOGIC: No change in exam. MEDICATIONS: The patient's medications have been reviewed. LABORATORY: Laboratory data has been reviewed. IMAGING STUDIES: Have been reviewed. ASSESSMENT AND PLAN: 1. Acute pulmonary embolism, acute right lower extremity deep venous thrombosis. Etiology is felt t o be secondary to right hip fracture. The patient is currently on Eliquis. Continue to monitor. 2. Acute hypoxemic respiratory failure secondary to acute PE, acute congestive heart failure exacerb ation. Continue current medical regimen. Continue supplemental oxygen, continue diuretic therapy. Continue anticoagulation. Monitor closely. 3. Acute and chronic heart failure. The patient is decompensated. Continue current diuretic regime n. Monitor electrolytes and renal function closely. 4. Alkalosis. Etiology may be compensatory versus diuretic therapy. The patient refused ABG. Cont inue Diamox. Follow up renal panel. 5. Coronary artery disease, history of coronary artery bypass graft. Continue medical management. 6. Hypertension. Continue current blood pressure regimen. 7. Dyslipidemia. Continue statin therapy. 8. Neuropathy, restless leg syndrome. Continue Requip. 9. Critical care myopathy. Continue physical therapy. 10. Cognitive decline. Continue Namenda. 11. Lower extremity wounds. Continue wound care. 12. Constipation. Continue current bowel regimen. 13. Distal femoral fracture status post open reduction internal fixation. 14. History of aortic aneurysm. 15. Diabetes type 2. 16. Gastrointestinal and deep vein thrombosis prophylaxis. Dictated By: KANDI OKEEFE DO NR/NTS Conf#: [id number] DID#: [id number] CC: FELIPE GRULLON MD; MELISSA CARRINGTON DO;*EndCC*
[2019-02-20 14:00] VITALS: BP_SYST 102; BP_SYST 129; BP_DIAS 61; BP_DIAS 84; PULSE 91; RESP 20
[2019-02-20 20:30] VITALS: BP 113/69; PULSE 71; RESP 20
[2019-02-20] MEDS: SENNA TAB PO SCH (20:45)
[2019-02-20] MEDS: ATORVASTATIN 20 MG TAB PO SCH (20:46)
[2019-02-20] MEDS: traZODone 50 MG TAB PO SCH (20:46)
[2019-02-21] MEDS: IPRATROPIUM (NEB) 0.5 MG/2.5 ML AMP HHN SCH ×4 (02:00→19:54)
[2019-02-21] MEDS: BUMETANIDE 1 MG INJ IV SCH ×2 (06:53→17:09)
[2019-02-21 08:00] VITALS: BP 125/74; PULSE 74; RESP 20
[2019-02-21] MEDS: ACETAZOLAMIDE 250 MG TAB PO SCH ×2 (08:10→20:40)
[2019-02-21] MEDS: ZINC SULFATE 220 MG CAP PO SCH (08:10)
[2019-02-21] MEDS: PREGABALIN 50 MG CAP PO SCH ×2 (08:10→20:40)
[2019-02-21] MEDS: MEMANTINE 5 MG TAB PO SCH ×2 (08:10→20:39)
[2019-02-21] MEDS: ASCORBIC ACID 500 MG TAB PO SCH (08:11)
[2019-02-21] MEDS: MULTIVITAMINS THERAPEUTIC TAB PO SCH (08:11)
[2019-02-21] MEDS: ROPINIROLE 0.25 MG TAB PO SCH (08:11)
[2019-02-21] MEDS: APIXABAN 5 MG TABLET PO SCH ×2 (08:11→20:39)
[2019-02-21] MEDS: CYANOCOBALAMIN 500 MCG TAB PO SCH (08:11)
[2019-02-21] MEDS: OXYBUTYNIN 5 MG TAB PO SCH ×2 (08:11→20:40)
[2019-02-21] MEDS: LACTULOSE 30ML CUP PO PRN (08:45)
[2019-02-21] MEDS: DOCUSATE SODIUM 100 MG CAP PO SCH ×2 (08:45→20:39)
--- NOTE | 2019-02-21 12:23 | CONS ---
Assessment/Plan Assessment/Plan Hospital Course (Demo Recall) Acute PE/DVT: occurred on coumadin. Now Eliquis Acute on chronic systolic CHF: being diuresed Paroxysmal afib: not previously present, occurred during recent hospitalization. On Eliquis. Appears to be in sinus on exam CAD s/p CABG 2009 AAA: now >5cm per pt and plan for [facility] soon with Dr. 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 Still with shortness of breath. Detailed Summary Additional Comments 14 point review of systems without changes. Exam/Review of Systems Vital Signs Vitals Vital Signs Date Temp Pulse Resp B/P (MAP) Pulse Ox O2 O2 Flow FiO2 Time Delivery Rate 02/21/19 Nasal 3.0 09:25 Cannula 02/21/19 96 08:22 02/21/19 66 18 08:22 02/21/19 98.0 125/74 08:00 (91) Intake and Output 02/20/19 02/20/19 02/21/19 1414:59 22:59 06:59 IntakeIntake Total 720 ml OutputOutput Total 1150 ml 580 ml BalanceBalance -430 ml -580 ml Exam Exam Constitutional: alert, oriented Psych: no complaints, nl mood/affect Head: normocephalic, atraumatic Neck: jvd (9cm) Respiratory: crackles/rales (mild at bases); No clear to auscultation Cardiovascular: edema (2+), systolic murmur (2/6 AMRIT); No regular rate and rhythm Gastrointestinal: soft, non-tender; No distended Musculoskeletal: No nl extremities to inspection Neurological: nl mental status, nl speech Labs Result Diagram: 02/21/19 1007 02/21/19 1007 Results 24hrs Laboratory Tests Test 02/21/19 10:07 White Blood Count 5.4 Red Blood Count 4.09 L Hemoglobin 12.9 L Hematocrit 41.6 L Mean Corpuscular Volume 101.7 H Mean Corpuscular Hemoglobin 31.5 Mean Corpuscular Hemoglobin Concent 31.0 L Red Cell Distribution Width 16.0 H Platelet Count 131 L Mean Platelet Volume 13.0 H Immature Granulocytes % 0.600 H Neutrophils % 70.9 Lymphocytes % 14.3 L Monocytes % 11.4 H Eosinophils % 2.2 Basophils % 0.6 Nucleated Red Blood Cells % 0.0 Immature Granulocytes # 0.030 Neutrophils # 3.8 Lymphocytes # 0.8 Monocytes # 0.6 Eosinophils # 0.1 Basophils # 0.0 Nucleated Red Blood Cells # 0.0 Sodium Level 142 Potassium Level 4.3 Chloride Level 97 Carbon Dioxide Level 38 H Anion Gap 7 Blood Urea Nitrogen 31 H Creatinine 1.33 H Est Glomerular Filtrat Rate mL/min Glucose Level 134 # Calcium Level 10.2 Phosphorus Level 4.4 Magnesium Level 2.3 Medications Medications Current Medications Docusate Sodium (Colace) 100 mg BID PO Last administered on 02/21/19 08:45; Admin Dose 100 MG; Start 02/17/19 at 21:00 Senna (Senokot) 1 tab HS PO Last administered on 02/20/19 20:45; Admin Dose 1 TAB; Start 02/17/19 at 21:00 Magnesium Hydroxide (Milk Of Mag) 30 ml BID PRN PO CONSTIPATION; Start 02/17/19 at 16:30 Lactulose (Enulose) 20 gm DAILY PRN PO CONSTIPATION Last administered on 02/03 08:45; Admin Dose 20 GM; Start 02/17/19 at 16:30 Bisacodyl (Dulcolax Supp) 10 mg DAILY PRN [place] CONSTIPATION Last administered on 02/18/19 12:48; Admin Dose 10 MG; Start 02/17/19 at 16:30 Acetaminophen (Tylenol Tab) 650 mg Q4H PRN PO PAIN; Start 02/17/19 at 16:30 Miscellaneous Information (Pending Santyl Order For Wound Care) This patient cornejo... PRN PRN XX WOUND CARE; Start 02/17/19 at 16:30 Apixaban (Eliquis) 5 mg BID PO Last administered on 02/21/19 08:11; Admin Dose 5 MG; Start 02/17/19 at 21:00 Ascorbic Acid (Vitamin C) 1,000 mg DAILY PO Last administered on 02/21/19 08:11; Admin Dose 1,000 MG; Start 02/18/19 at 09:00 Atorvastatin Calcium (Lipitor) 20 mg HS PO Last administered on 02/20/19 20:46; Admin Dose 20 MG; Start 02/17/19 at 21:00 Carvedilol (Coreg) 3.125 mg BID PO Last administered on 02/21/19 08:11; Admin Dose 3.125 MG; Start 02/17/19 at 21:00 Cyanocobalamin (Vitamin B12) 1,000 mcg DAILY PO Last administered on 02/21/19 08:11; Admin Dose 1,000 MCG; Start 02/18/19 at 09:00 Acetaminophen/ Hydrocodone Bitart ([place] (10/325)) 1 tab Q12H PRN PO MODERATE PAIN LEVEL 4-6; Start 02/17/19 at 17:00 Ipratropium [place] (Atrovent 0.02% (Neb)) 0.5 mg Q6H RESP THERAPY HHN Last administered on 02/21/19 08:22; Admin Dose 0.5 MG; Start 02/17/19 at 20:00 Memantine (Namenda) 5 mg BID PO Last administered on 02/21/19 08:10; Admin Dose 5 MG; Start 02/17/19 at 21:00 Oxybutynin Chloride (Ditropan) 5 mg BID PO Last administered on 02/21/19 08:11; Admin Dose 5 MG; Start 02/17/19 at 21:00 Pregabalin (Lyrica) 200 mg BID PO Last administered on 02/21/19 08:10; Admin Dose 200 MG; Start 02/17/19 at 21:00 Trazodone HCl (Desyrel) 150 mg HS PO Last administered on 02/20/19 20:46; Admin Dose 150 MG; Start 02/17/19 at 21:00 Ropinirole HCl (Requip) 0.5 mg DAILY PO Last administered on 02/21/19 08:11; Admin Dose 0.5 MG; Start 02/18/19 at 09:00 Multivitamins Therapeutic (Theragran) 1 tab DAILY PO Last administered on 02/21/19 08:11; Admin Dose 1 TAB; Start 02/19/19 at 09:00 Zinc Sulfate (Zinc Sulfate) 220 mg DAILY PO Last administered on 02/21/19 08:10; Admin Dose 220 MG; Start 02/19/19 at 09:00 Acetazolamide (Diamox) 250 mg BID PO Last administered on 02/21/19 08:10; Admin Dose 250 MG; Start 02/19/19 at 09:00 Bumetanide (Bumex) 1 mg BID DIURETICS IV Last administered on 02/21/19at 06:53; Admin Dose 1 MG; Start 02/19/19 at 18:00 Patient Own Medication 1 ea DAILY PRN PO CONSTIPATION; Start 02/19/19 at 12:00 SHADE SMITH MD February 21, 2019 12:23
--- NOTE | 2019-02-21 13:36 | PN ---
DATE: 02/21/2019 SUBJECTIVE: The patient is clinically improving, still short of breath. Urinary output has improved . OBJECTIVE: VITAL SIGNS: Blood pressure is 113/69, respirations 20, pulse 71, temperature 97.8. HEENT: Head is normocephalic. NECK: Supple. HEART: Regular rate. LUNGS: Show diminished breath sounds at the base. ABDOMEN: Soft, nontender to palpation without rebound or guarding. EXTREMITIES: Negative for clubbing, cyanosis. Positive edema, improving. DERMATOLOGIC: No rashes. MUSCULOSKELETAL: No joint effusion. NEUROLOGIC: No change in exam. MEDICATIONS: The patient's medications have been reviewed. LABORATORY DATA: Has been reviewed. ASSESSMENT AND PLAN: 1. Acute pulmonary embolism, acute right lower extremity deep venous thrombosis. The patient is cur rently on Eliquis. Continue to monitor. 2. Acute hypoxic respiratory failure secondary to acute PE, CHF exacerbation. The patient is current ly stable on supplemental oxygen, continue. Continue diuretic regimen. 3. Acute on chronic heart failure. The patient is decompensated, slowly improving. Continue curren t diuretic regimen, monitor electrolytes and renal function closely. 5. Nonoliguric acute kidney injury with previously normal baseline creatinine. Etiology secondary t o hemodynamics. Will monitor renal function. If renal functions further decline, will deescalate di uretic therapy. 6. Alkalosis, likely due to diuretic therapy, compensatory. Continue Diamox. 7. Coronary artery disease, history of coronary artery bypass graft. Continue medical management. 8. Hypertension. Continue current blood pressure regimen. 9. Dyslipidemia. Continue statin therapy. 10. Neuropathy, restless leg syndrome. Continue current treatment plan. 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 Continue physical therapy. 12. Lower extremity wounds. Continue wound care. 13. Constipation. Continue current bowel regimen. 14. Femoral fracture, status post open reduction internal fixation. 15. History of aortic aneurysm. 16. Diabetes type 2. 17. Gastrointestinal and deep venous thrombosis prophylaxis. Dictated By: KANDI OKEEFE DO NR/NTS Conf#: [id number] DID#: [id number] CC: MELISSA CARRINGTON DO; FELIPE GRULLON MD;*EndCC*
[2019-02-21 14:00] VITALS: BP 126/74; PULSE 85; RESP 19
[2019-02-21 20:00] VITALS: BP 132/72; RESP 19
[2019-02-21] MEDS: traZODone 50 MG TAB PO SCH (20:40)
[2019-02-21] MEDS: ATORVASTATIN 20 MG TAB PO SCH (20:40)
[2019-02-21] MEDS: SENNA TAB PO SCH (20:40)
[2019-02-22] MEDS: IPRATROPIUM (NEB) 0.5 MG/2.5 ML AMP HHN SCH ×4 (01:35→20:39)
[2019-02-22 02:00] VITALS: BP 120/79; PULSE 62; RESP 18
[2019-02-22] MEDS: BUMETANIDE 1 MG INJ IV SCH (06:26)
[2019-02-22 08:00] VITALS: BP 128/78; PULSE 78; RESP 18
--- NOTE | 2019-02-22 09:21 | CONS ---
Assessment/Plan Assessment/Plan Hospital Course (Demo Recall) Acute PE/DVT: occurred on coumadin. Now on Eliquis Acute on chronic systolic CHF: being diuresed. Improving Paroxysmal afib: not previously present, occurred during recent hospitalization. On Eliquis. Appears to be in sinus on exam CAD s/p CABG 2009 AAA: now >5cm per pt and plan for EVAR soon with Dr. Abreu Ischemic cardiomyopathy EF 40-45% Trifascicular block h/o DVT previously on coumadin and s/p IVC HTN CKD (Cr baseline 1.3) -continue bumex 1mg IV BID. ?switch to PO tomorrow -diamox -Eliquis 5mg BID -lipitor 20mg -coreg 3.125mg BID Consultation Date/Type/Reason Admit Date/Time February 17, 2019 at 15:45 Initial Consult Date 02/19/19 Type of Consult Cardiology Date/Time of Note DATE: 02/22/19 TIME: 09:20 24 HR Interval Summary Free Text/Dictation Cr stable. Still with SOB. Diuresing well. Exam/Review of Systems Vital Signs Vitals Vital Signs Date Temp Pulse Resp B/P (MAP) Pulse Ox O2 O2 Flow FiO2 Time Delivery Rate 02/22/19 98.2 78 18 128/78 99 Nasal 3.0 08:00 (95) Cannula Intake and Output 02/21/19 02/21/19 02/22/19 1515:00 23:00 07:00 IntakeIntake Total 650 ml OutputOutput Total 850 ml BalanceBalance -200 ml Exam Constitutional: alert, oriented Head: normocephalic, atraumatic Neck: jvd (9cm) Respiratory: crackles/rales; No clear to auscultation Cardiovascular: regular rate and rhythm, edema (trace) Musculoskeletal: No nl extremities to inspection Neurological: nl mental status, nl speech Labs Result Diagram: 02/21/19 1007 02/22/19 0556 Results 24hrs Laboratory Tests Test 02/21/19 10:07 02/22/19 05:56 White Blood Count 5.4 Red Blood Count 4.09 L Hemoglobin 12.9 L Hematocrit 41.6 L Mean Corpuscular Volume 101.7 H Mean Corpuscular Hemoglobin 31.5 Mean Corpuscular Hemoglobin Concent 31.0 L Red Cell Distribution Width 16.0 H Platelet Count 131 L Mean Platelet Volume 13.0 H Immature Granulocytes % 0.600 H Neutrophils % 70.9 Lymphocytes % 14.3 L Monocytes % 11.4 H Eosinophils % 2.2 Basophils % 0.6 Nucleated Red Blood Cells % 0.0 Immature Granulocytes # 0.030 Neutrophils # 3.8 Lymphocytes # 0.8 Monocytes # 0.6 Eosinophils # 0.1 Basophils # 0.0 Nucleated Red Blood Cells # 0.0 Sodium Level 142 144 Potassium Level 4.3 4.6 Chloride Level 97 100 Carbon Dioxide Level 38 H 38 H Anion Gap 7 6 Blood Urea Nitrogen 31 H 31 H Creatinine 1.33 H 1.33 H Est Glomerular Filtrat Rate mL/min Glucose Level 134 # 147 Calcium Level 10.2 9.7 Phosphorus Level 4.4 4.0 Magnesium Level 2.3 2.4 Medications Medications Current Medications Docusate Sodium (Colace) 100 mg BID PO Last administered on 02/21/19 08:45; Admin Dose 100 MG; Start 02/17/19 at 21:00 Senna (Senokot) 1 tab HS PO Last administered on 02/20/19 20:45; Admin Dose 1 TAB; Start 02/17/19 at 21:00 Magnesium Hydroxide (Milk Of Mag) 30 ml BID PRN PO CONSTIPATION Last administered on 02/21/19 17:09; Admin Dose 30 ML; Start 02/17/19 at 16:30 Lactulose (Enulose) 20 gm DAILY PRN PO CONSTIPATION Last administered on 02/21/19 08:45; Admin Dose 20 GM; Start 02/17/19 at 16:30 Bisacodyl (Dulcolax Supp) 10 mg DAILY PRN [place] CONSTIPATION Last administered on 02/18/19at 12:48; Admin Dose 10 MG; Start 02/17/19 at 16:30 Acetaminophen (Tylenol Tab) 650 mg Q4H PRN PO PAIN; Start 02/17/19 at 16:30 [facility]isc[facility] This patient cornejo... PRN PRN XX WOUND CARE; Start 02/17/19 at 16:30 Apixaban (Eliquis) 5 mg BID PO Last administered on 02/21/19 20:39; Admin Dose 5 MG; Start 02/17/19 at 21:00 Ascorbic Acid (Vitamin C) 1,000 mg DAILY PO Last administered on 02/21/19 08:11; Admin Dose 1,000 MG; Start 02/18/19 at 09:00 Atorvastatin Calcium (Lipitor) 20 mg HS PO Last administered on 02/21/19 20:40; Admin Dose 20 MG; Start 02/17/19 at 21:00 Carvedilol (Coreg) 3.125 mg BID PO Last administered on 02/21/19 20:42; Admin Dose 3.125 MG; Start 02/17/19 at 21:00 Cyanocobalamin (Vitamin B12) 1,000 mcg DAILY PO Last administered on 02/21/19 08:11; Admin Dose 1,000 MCG; Start 02/18/19 at 09:00 Acetaminophen/ Hydrocodone Bitart ([place] (10)) 1 tab Q12H PRN PO MODERATE PAIN LEVEL 4-6; Start 02/17/19 at 17:00 Ipratropium [place] (Atrovent 0.02% (Neb)) 0.5 mg Q6H RESP THERAPY HHN Last administered on 02/21/19 19:54; Admin Dose 0.5 MG; Start 02/17/19 at 20:00 Memantine (Namenda) 5 mg BID PO Last administered on 02/21/19 20:39; Admin Dose 5 MG; Start 02/17/19 at 21:00 Oxybutynin Chloride (Ditropan) 5 mg BID PO Last administered on 02/21/19 20:40; Admin Dose 5 MG; Start 02/17/19 at 21:00 Pregabalin (Lyrica) 200 mg BID PO Last administered on 02/21/19 20:40; Admin Dose 200 MG; Start 02/17/19 at 21:00 Trazodone HCl (Desyrel) 150 mg HS PO Last administered on 02/21/19 20:40; Admin Dose 150 MG; Start 02/17/19 at 21:00 Ropinirole HCl (Requip) 0.5 mg DAILY PO Last administered on 02/21/19 08:11; Admin Dose 0.5 MG; Start 02/18/19 at 09:00 Multivitamins Therapeutic (Theragran) 1 tab DAILY PO Last administered on 02/21/19 08:11; Admin Dose 1 TAB; Start 02/19/19 at 09:00 Zinc Sulfate (Zinc Sulfate) 220 mg DAILY PO Last administered on 02/21/19at 08:10; Admin Dose 220 MG; Start 02/19/19 at 09:00 Acetazolamide (Diamox) 250 mg BID PO Last administered on 02/21/19at 20:40; Admin Dose 250 MG; Start 02/19/19 at 09:00 Bumetanide (Bumex) 1 mg BID DIURETICS IV Last administered on 02/22/19at 06:26; Admin Dose 1 MG; Start 02/19/19 at 18:00 Patient Own Medication 1 ea DAILY PRN PO CONSTIPATION; Start 02/19/19 at 12:00 BIENVENIDO CAMARENA February 22, 2019 09:21
[2019-02-22] MEDS: MEMANTINE 5 MG TAB PO SCH ×2 (09:29→21:05)
[2019-02-22] MEDS: CYANOCOBALAMIN 500 MCG TAB PO SCH (09:30)
[2019-02-22] MEDS: ACETAZOLAMIDE 250 MG TAB PO SCH ×2 (09:30→21:05)
[2019-02-22] MEDS: ZINC SULFATE 220 MG CAP PO SCH (09:30)
[2019-02-22] MEDS: OXYBUTYNIN 5 MG TAB PO SCH ×2 (09:30→21:05)
[2019-02-22] MEDS: DOCUSATE SODIUM 100 MG CAP PO SCH ×2 (09:30→21:05)
[2019-02-22] MEDS: MULTIVITAMINS THERAPEUTIC TAB PO SCH (09:30)
[2019-02-22] MEDS: APIXABAN 5 MG TABLET PO SCH ×2 (09:30→21:05)
[2019-02-22] MEDS: PREGABALIN 50 MG CAP PO SCH ×2 (09:31→21:06)
[2019-02-22] MEDS: ASCORBIC ACID 500 MG TAB PO SCH (09:31)
[2019-02-22 09:35] VITALS: BP 80/71; PULSE 70; RESP 18
[2019-02-22] MEDS: ROPINIROLE 0.25 MG TAB PO SCH (09:38)
[2019-02-22 10:00] VITALS: BP 118/63; PULSE 82; RESP 18
--- NOTE | 2019-02-22 10:29 | PN ---
DATE: 02/22/2019 SUBJECTIVE: The patient is clinically improving. No acute events overnight. Shortness of breath is improving. OBJECTIVE: VITAL SIGNS: Blood pressure is 128/78, respirations 18, pulse 78, temperature 98.2. HEENT: Head is normocephalic. NECK: Supple. HEART: Regular rate. LUNGS: Show diminished breath sounds at the base. ABDOMEN: Soft, nontender to palpation without rebound or guarding. EXTREMITIES: Negative for clubbing, cyanosis, positive edema. DERMATOLOGIC: No rashes. MUSCULOSKELETAL: No joint effusion. NEUROLOGIC: No change in exam. MEDICATIONS: Reviewed. LABORATORY DATA: From 02/22/2019 has been reviewed. ASSESSMENT AND PLAN: 1. Acute pulmonary embolism, acute right lower extremity deep vein thrombosis. The patient is currently on Eliquis. Continue to monitor. 2. Acute respiratory failure secondary to acute pulmonary embolism, congestive heart failure exacerbation. The patient is stable. Continue supplemental oxygen and diuretic therapy. Wean off if possible. 3. Acute on chronic heart failure. The patient is clinically improving near euvolemic status. We will continue current diuretic regimen. We will adjust current diuretic regimen.. We will change Bumex 1mg po bid. Monitor closely. 4. Alkalosis. Etiology is likely due to diuretic therapy. Possible compensatory response. Continue Diamox. 5. Nonoliguric acute kidney injury with previously normal baseline creatinine. Etiology is secondary to hemodynamics. Renal function stabilized. Continue current treatment plan, supportive care, and continue current diuretic regimen. 6. Coronary artery disease, status post coronary artery bypass graft. Continue medical management. 7. Hypertension. Blood pressure improved. Continue current blood pressure regimen. 8. Dyslipidemia. Continue statin therapy. 9. Neuropathy versus restless leg syndrome. Continue current treatment plan. 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 11. Lower extremity wounds. Continue wound care. 12. Constipation. Continue current bowel regimen. 13. Femoral fracture status post open reduction internal fixation. 14. History of aortic aneurysm. 15. Gastrointestinal and deep vein thrombosis prophylaxis. Dictated By: KANDI OKEEFE DO NR/NTS Conf#: [id number] DID#: [id number] CC: MELISSA CARRINGTON DO; FELIPE GRULLON MD;*EndCC* [facility]
--- NOTE | 2019-02-22 12:15 | PN ---
Date/Time of Note Date/Time of Note DATE: 02/22/19 TIME: 12:15 Objective Vital Signs Date Temp Pulse Resp B/P (MAP) Pulse Ox O2 O2 Flow FiO2 Time Delivery Rate 02/22/19 82 18 118/63 98 Nasal 2.5 10:00 (81) Cannula 02/22/19 98.2 08:00 Intake and Output 02/21/19 02/21/19 02/22/19 1515:00 23:00 07:00 IntakeIntake Total 650 ml OutputOutput Total 850 ml BalanceBalance -200 ml Exam INTERDISCIPLINARY TEAM CONFERENCE Attended by PT, OT, ST, Smt Technician, Social Work, Rehabilitation Nursing, Furniture And Bedding Inspector and Rn ImcuTube Handler Exam: Pulm- cta Abd-soft BOWEL- Cont BLADDER-Cont SKIN- improving sacrum, malleous stable, heel improving OT- DRESSING-mod/max BATHING-mod/max TOILETING-max PT- BED MOBILITY-max TRANSFERS-max x 2-3 A/P- Interdisciplinary team conference held today. Please see interdisciplinary sheet. Working toward d.c. on 03/04 with post discharge follow up of physical therapy, occupational therapy. Results/Medications Result Diagram: 02/21/19 1007 02/22/19 0556 Results 24 hrs Laboratory Tests Test 02/22/19 05:56 Sodium Level 144 Potassium Level 4.6 Chloride Level 100 Carbon Dioxide Level 38 H Anion Gap 6 Blood Urea Nitrogen 31 H Creatinine 1.33 H Est Glomerular Filtrat Rate mL/min Glucose Level 147 Calcium Level 9.7 Phosphorus Level 4.0 Magnesium Level 2.4 Medications Current Medications Docusate Sodium (Colace) 100 mg BID PO Last administered on 02/22/19at 09:30; Admin Dose 100 MG; Start 02/17/19 at 21:00 Senna (Senokot) 1 tab HS PO Last administered on 02/20/19at 20:45; Admin Dose 1 TAB; Start 02/17/19 at 21:00 Magnesium Hydroxide (Milk Of Mag) 30 ml BID PRN PO CONSTIPATION Last administered on 02/21/19at 17:09; Admin Dose 30 ML; Start 02/17/19 at 16:30 Lactulose (Enulose) 20 gm DAILY PRN PO CONSTIPATION Last administered on 02/21/19at 08:45; Admin Dose 20 GM; Start 02/17/19 at 16:30 Bisacodyl (Dulcolax Supp) 10 mg DAILY PRN [place] CONSTIPATION Last administered on 02/18/19 12:48; Admin Dose 10 MG; Start 02/17/19 at 16:30 Acetaminophen (Tylenol Tab) 650 mg Q4H PRN PO PAIN; Start 02/17/19 at 16:30 Miscellaneous Information (Pending [facility] Order For Wound Care) This patient cornejo... PRN PRN XX WOUND CARE; Start 02/17/19 at 16:30 Apixaban (Eliquis) 5 mg BID PO Last administered on 02/22/19 09:30; Admin Dose 5 MG; Start 02/17/19 at 21:00 Ascorbic Acid (Vitamin C) 1,000 mg DAILY PO Last administered on 02/22/19 09:31; Admin Dose 1,000 MG; Start 02/18/19 at 09:00 Atorvastatin Calcium (Lipitor) 20 mg HS PO Last administered on 02/21/19 20:40; Admin Dose 20 MG; Start 02/17/19 at 21:00 Carvedilol (Coreg) 3.125 mg BID PO Last administered on 02/21/19 20:42; Admin Dose 3.125 MG; Start 02/17/19 at 21:00 Cyanocobalamin (Vitamin B12) 1,000 mcg DAILY PO Last administered on 02/22/19 09:30; Admin Dose 1,000 MCG; Start 02/18/19 at 09:00 Acetaminophen/ Hydrocodone Bitart ([place] (10/325)) 1 tab Q12H PRN PO MODERATE PAIN LEVEL 4-6; Start 02/17/19 at 17:00 Ipratropium [place] (Atrovent 0.02% (Neb)) 0.5 mg Q6H RESP THERAPY HHN Last administered on 02/21/19 19:54; Admin Dose 0.5 MG; Start 02/17/19 at 20:00 Memantine (Namenda) 5 mg BID PO Last administered on 02/22/19 09:29; Admin Dose 5 MG; Start 02/17/19 at 21:00 Oxybutynin Chloride (Ditropan) 5 mg BID PO Last administered on 02/22/19 09:30; Admin Dose 5 MG; Start 02/17/19 at 21:00 Pregabalin (Lyrica) 200 mg BID PO Last administered on 02/22/19 09:31; Admin Dose 200 MG; Start 02/17/19 at 21:00 Trazodone HCl (Desyrel) 150 mg HS PO Last administered on 02/21/19 20:40; Admin Dose 150 MG; Start 02/17/19 at 21:00 Ropinirole HCl (Requip) 0.5 mg DAILY PO Last administered on 02/22/19 09:38; Admin Dose 0.5 MG; Start 02/18/19 at 09:00 Multivitamins Therapeutic (Theragran) 1 tab DAILY PO Last administered on 02/22/19 09:30; Admin Dose 1 TAB; Start 02/19/19 at 09:00 Zinc Sulfate (Zinc Sulfate) 220 mg DAILY PO Last administered on 02/22/19 09:30; Admin Dose 220 MG; Start 02/19/19 at 09:00 Acetazolamide (Diamox) 250 mg BID PO Last administered on 02/22/19 09:30; Admin Dose 250 MG; Start 02/19/19 at 09:00 Patient Own Medication 1 ea DAILY PRN PO CONSTIPATION; Start 02/19/19 at 12:00 Bumetanide (Bumex) 1 mg BID DIURETICS PO ; Start 02/22/19 at 18:00 FELIPE GRULLON MD February 22, 2019 12:15
[2019-02-22] MEDS: LACTULOSE 30ML CUP PO PRN (13:56)
[2019-02-22] MEDS: HYDROCODONE/APAP (10/325) TAB PO PRN (13:56)
[2019-02-22 14:00] VITALS: BP 119/69; PULSE 78; RESP 18
[2019-02-22] MEDS: BUMETANIDE 1 MG TAB PO SCH (18:10)
[2019-02-22] MEDS: traZODone 50 MG TAB PO SCH (21:05)
[2019-02-22] MEDS: ATORVASTATIN 20 MG TAB PO SCH (21:05)
[2019-02-22] MEDS: SENNA TAB PO SCH (21:05)
[2019-02-22] MEDS: ASCORBIC ACID 250 MG TAB PO SCH (21:06)
[2019-02-23] MEDS: IPRATROPIUM (NEB) 0.5 MG/2.5 ML AMP HHN SCH ×4 (01:50→20:55)
[2019-02-23] MEDS: BISACODYL 10 MG SUPP PR PRN (06:45)
[2019-02-23] MEDS: BUMETANIDE 1 MG TAB PO SCH (06:45)
--- NOTE | 2019-02-23 08:20 | PN ---
Date/Time of Note Date/Time of Note DATE: 02/23/19 TIME: 08:20 Subjective Comfortable Objective Vital Signs Date Temp Pulse Resp B/P (MAP) Pulse Ox O2 O2 Flow FiO2 Time Delivery Rate 02/23/19 2.0 01:50 02/22/19 Nasal 21:00 Cannula 02/22/19 75 22 96 20:39 02/22/19 98.0 119/69 14:00 (86) Intake and Output 02/22/19 02/22/19 02/23/19 1515:00 23:00 07:00 IntakeIntake Total 900 ml 50 ml OutputOutput Total 950 ml 250 ml BalanceBalance -50 ml -200 ml Exam pulm-cta max transfer Results/Medications Result Diagram: 02/21/19 1007 02/22/19 0556 Medications Current Medications Docusate Sodium (Colace) 100 mg BID PO Last administered on 02/22/19at 21:05; Admin Dose 100 MG; Start 02/17/19 at 21:00 Senna (Senokot) 1 tab HS PO Last administered on 02/22/19at 21:05; Admin Dose 1 TAB; Start 02/17/19 at 21:00 Magnesium Hydroxide (Milk Of Mag) 30 ml BID PRN PO CONSTIPATION Last administered on 02/21/19at 17:09; Admin Dose 30 ML; Start 02/17/19 at 16:30 Lactulose (Enulose) 20 gm DAILY PRN PO CONSTIPATION Last administered on 02/22/19at 13:56; Admin Dose 20 GM; Start 02/17/19 at 16:30 Bisacodyl (Dulcolax Supp) 10 mg DAILY PRN [place] CONSTIPATION Last administered on 02/23/19at 06:45; Admin Dose 10 MG; Start 02/17/19 at 16:30 Acetaminophen (Tylenol Tab) 650 mg Q4H PRN PO PAIN; Start 02/17/19 at 16:30 [facility] This patient cornejo... PRN PRN XX WOUND CARE; Start 02/17/19 at 16:30 Apixaban (Eliquis) 5 mg BID PO Last administered on 02/22/19at 21:05; Admin Dose 5 MG; Start 02/17/19 at 21:00 Atorvastatin Calcium (Lipitor) 20 mg HS PO Last administered on 02/22/19 21:05; Admin Dose 20 MG; Start 02/17/19 at 21:00 Carvedilol (Coreg) 3.125 mg BID PO Last administered on 02/22/19 21:06; Admin Dose 3.125 MG; Start 02/17/19 at 21:00 Cyanocobalamin (Vitamin B12) 1,000 mcg DAILY PO Last administered on 02/22/19 09:30; Admin Dose 1,000 MCG; Start 02/18/19 at 09:00 Acetaminophen/ Hydrocodone Bitart ([place] (10/325)) 1 tab Q12H PRN PO MODERATE PAIN LEVEL 4-6 Last administered on 02/22/19 13:56; Admin Dose 1 TAB; Start 02/17/19 at 17:00 Ipratropium [place] (Atrovent 0.02% (Neb)) 0.5 mg Q6H RESP THERAPY HHN Last administered on 02/22/19 20:39; Admin Dose 0.5 MG; Start 02/17/19 at 20:00 Memantine (Namenda) 5 mg BID PO Last administered on 02/22/19 21:05; Admin Dose 5 MG; Start 02/17/19 at 21:00 Oxybutynin Chloride (Ditropan) 5 mg BID PO Last administered on 02/22/19 21:05; Admin Dose 5 MG; Start 02/17/19 at 21:00 Pregabalin (Lyrica) 200 mg BID PO Last administered on 02/22/19 21:06; Admin Dose 200 MG; Start 02/17/19 at 21:00 Trazodone HCl (Desyrel) 150 mg HS PO Last administered on 02/22/19 21:05; Admin Dose 150 MG; Start 02/17/19 at 21:00 Ropinirole HCl (Requip) 0.5 mg DAILY PO Last administered on 02/22/19 09:38; Admin Dose 0.5 MG; Start 02/18/19 at 09:00 Multivitamins Therapeutic (Theragran) 1 tab DAILY PO Last administered on 02/22/19 09:30; Admin Dose 1 TAB; Start 02/19/19 at 09:00 Zinc Sulfate (Zinc Sulfate) 220 mg DAILY PO Last administered on 02/22/19 09:30; Admin Dose 220 MG; Start 02/19/19 at 09:00 Acetazolamide (Diamox) 250 mg BID PO Last administered on 02/22/19at 21:05; Admin Dose 250 MG; Start 02/19/19 at 09:00 Patient Own Medication 1 ea DAILY PRN PO CONSTIPATION; Start 02/19/19 at 12:00 Bumetanide (Bumex) 1 mg BID DIURETICS PO Last administered on 02/23/19at 06:45; Admin Dose 1 MG; Start 02/22/19 at 18:00 Ascorbic Acid (Vitamin C) 250 mg BID PO Last administered on 02/22/19at 21:06; Admin Dose 250 MG; Start 02/22/19 at 21:00 Assessment/Plan Additional Assessment/Plan rehab- Critical illness myopathy, debility status post congestive heart failure exacerbation. Continue rehab, overall activity tolerance improving Recent left distal femur fracture status post open reduction internal fixation. Acute on chronic renal failure. Acute on chronic congestive heart failure. Atrial fibrillation. History of non-ST elevation myocardial infarction. History of deep venous thrombosis and pulmonary embolism, status post inferior vena cava filter. Diabetes mellitus type 2. History of aortic aneurysm. Venous stasis changes. Incontinent, Moisture associated dermatitis in the sacral region- improving Right medial malleolus ulceration. FELIPE GRULLON MD February 23, 2019 08:20
[2019-02-23 09:08] VITALS: BP 130/83; PULSE 70; RESP 18
[2019-02-23] MEDS: DOCUSATE SODIUM 100 MG CAP PO SCH ×2 (09:23→20:57)
[2019-02-23] MEDS: MULTIVITAMINS THERAPEUTIC TAB PO SCH (09:23)
[2019-02-23] MEDS: ASCORBIC ACID 250 MG TAB PO SCH ×2 (09:33→20:57)
[2019-02-23] MEDS: CYANOCOBALAMIN 500 MCG TAB PO SCH (09:33)
[2019-02-23] MEDS: ROPINIROLE 0.25 MG TAB PO SCH (09:33)
[2019-02-23] MEDS: OXYBUTYNIN 5 MG TAB PO SCH ×2 (09:33→20:57)
[2019-02-23] MEDS: APIXABAN 5 MG TABLET PO SCH ×2 (09:34→20:57)
[2019-02-23] MEDS: PREGABALIN 50 MG CAP PO SCH ×2 (09:34→20:58)
[2019-02-23] MEDS: ZINC SULFATE 220 MG CAP PO SCH (09:34)
[2019-02-23] MEDS: MEMANTINE 5 MG TAB PO SCH ×2 (09:34→20:57)
--- NOTE | 2019-02-23 09:34 | PN ---
DATE: 02/23/2019 SUBJECTIVE: The patient is stable. No events overnight. No fevers, chills, nausea or vomiting. OBJECTIVE: VITAL SIGNS: Blood pressure is 119/69, respirations 18, pulse 78, temperature 98.0. HEENT: Head is normocephalic. NECK: Supple. HEART: Regular rate. LUNGS: Show diminished breath sounds at the base. ABDOMEN: Soft, nontender to palpation without rebound or guarding. EXTREMITIES: Negative for clubbing, cyanosis. Trace edema. DERMATOLOGIC: No rashes. MUSCULOSKELETAL: No joint effusion. NEUROLOGIC: No change in exam. MEDICATIONS: The patient's medications have been reviewed. LABORATORY DATA: Reviewed. IMAGING STUDIES: Reviewed. ASSESSMENT AND PLAN: 1. Acute pulmonary embolism, acute right lower extremity deep vein thrombosis. The patient is curre ntly stable on Eliquis, continue. 2. Acute respiratory failure secondary to pulmonary embolism, congestive heart failure exacerbation. The patient is currently stable on 3 liters nasal cannula. Continue to wean off. 3. Acute on chronic heart failure. The patient is clinically improving. We will deescalate diureti c therapy in the setting of worsening renal function. We will monitor renal function and electrolyte s closely. 4. Nonoliguric acute kidney injury with previously normal baseline creatinine. Etiology was seconda ry to hemodynamics. Renal function is declined. As stated above, we will deescalate diuretic therap y, monitor closely. 5. Alkalosis secondary to diuretic therapy. The patient alkalosis has been improving. We will disc ontinue Diamox and monitor. 6. Coronary artery disease with history of coronary artery bypass graft. Continue medical managemen t. 7. Hypertension. Continue current blood pressure regimen. 8. Dyslipidemia. Continue statin therapy. 9. Neuropathy versus restless leg syndrome. Continue current treatment plan. 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 11. Lower extremity wounds. Continue wound care. 12. Constipation. Continue bowel regimen. 13. Femoral fracture status post ORIF. Continue to monitor. 14. History of aortic aneurysm. The patient is pending surgical repair in 1 to 2 weeks. 15. Gastrointestinal and deep vein thrombosis prophylaxis. Dictated By: KANDI BENSON/BOONE Conf#: [id number] DID#: [id number] CC: FELIPE GRULLON MD; MELISSA CARRINGTON DO;*EndCC*
[2019-02-23 14:00] VITALS: BP 127/75; PULSE 71; RESP 19
[2019-02-23 20:00] VITALS: BP 129/84; PULSE 76; RESP 18
[2019-02-23] MEDS: traZODone 50 MG TAB PO SCH (20:57)
[2019-02-23] MEDS: SENNA TAB PO SCH (20:57)
[2019-02-23] MEDS: ATORVASTATIN 20 MG TAB PO SCH (20:57)
[2019-02-23] MEDS: NYSTATIN 30 GM POWDER BTL TOP SCH (20:58)
[2019-02-24] MEDS: IPRATROPIUM (NEB) 0.5 MG/2.5 ML AMP HHN SCH ×4 (01:38→19:44)
[2019-02-24 08:00] VITALS: BP 131/83; PULSE 65; RESP 18
[2019-02-24] MEDS: PREGABALIN 50 MG CAP PO SCH ×2 (08:54→21:00)
[2019-02-24] MEDS: APIXABAN 5 MG TABLET PO SCH ×2 (08:56→21:03)
[2019-02-24] MEDS: MEMANTINE 5 MG TAB PO SCH ×2 (08:56→21:03)
[2019-02-24] MEDS: OXYBUTYNIN 5 MG TAB PO SCH ×2 (08:56→21:02)
[2019-02-24] MEDS: MULTIVITAMINS THERAPEUTIC TAB PO SCH (08:57)
[2019-02-24] MEDS: DOCUSATE SODIUM 100 MG CAP PO SCH ×2 (08:57→21:02)
[2019-02-24] MEDS: CYANOCOBALAMIN 500 MCG TAB PO SCH (08:57)
[2019-02-24] MEDS: ZINC SULFATE 220 MG CAP PO SCH (08:57)
[2019-02-24] MEDS: BUMETANIDE 1 MG TAB PO SCH (08:57)
[2019-02-24] MEDS: ASCORBIC ACID 250 MG TAB PO SCH ×2 (08:58→21:01)
[2019-02-24] MEDS: ROPINIROLE 0.25 MG TAB PO SCH (08:58)
[2019-02-24] MEDS: NYSTATIN 30 GM POWDER BTL TOP SCH ×2 (08:59→21:05)
--- NOTE | 2019-02-24 09:19 | PN ---
DATE: 02/24/2019 SUBJECTIVE: The patient is stable, no events overnight. No fevers, chills, nausea or vomiting. OBJECTIVE: VITAL SIGNS: Blood pressure is 129/84, respirations 18, pulse 76, temperature 98.0. HEENT: Head is normocephalic. NECK: Supple. HEART: Regular rate. LUNGS: Show diminished breath sounds at the base. ABDOMEN: Soft, nontender to palpation without rebound or guarding. EXTREMITIES: Negative for clubbing, cyanosis, trace edema. DERMATOLOGIC: No rashes. MUSCULOSKELETAL: No joint effusion. NEUROLOGIC: No change in exam. MEDICATIONS: Reviewed. LABORATORY DATA: Reviewed. ASSESSMENT AND PLAN: 1. Acute pulmonary embolism, acute right lower extremity deep vein thrombosis. The patient is curre ntly stable. Continue Eliquis. 2. Acute respiratory failure secondary to pulmonary embolism, congestive heart failure exacerbation. The patient is clinically stable. Continue nasal cannula. 3. Acute on chronic heart failure. The patient is clinically improving. Continue current diuretic regimen. 4. Nonoliguric acute kidney injury with previously normal baseline creatinine. Etiology is secondar y to hemodynamics. Renal function is stabilizing. Continue to monitor on current diuretic regimen. 5. Alkalosis secondary to diuretic therapy, improved. The patient is status post Diamox. 6. Coronary artery disease with history of coronary artery bypass graft. Continue medical managemen t. 7. Hypertension. Continue current blood pressure regimen. 8. Dyslipidemia. Continue statin therapy. 9. Neuropathy versus restless leg syndrome. Continue medical management. 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 11. Lower extremity wounds. Continue wound care. 12. Constipation. Continue current bowel regimen. 13. Femoral fracture status post open reduction internal fixation. Continue to monitor. 14. History of aortic aneurysm. The patient is pending [facility]. 15. Gastrointestinal and deep vein thrombosis prophylaxis. Dictated By: KANDI OKEEFE DO NR/NTS Conf#: [id number] DID#: [id number] CC: FELIPE GRULLON MD; MELISSA CARRINGTON DO;*EndCC*
--- NOTE | 2019-02-24 11:20 | CONS ---
Assessment/Plan Assessment/Plan Hospital Course (Demo Recall) Acute PE/DVT: occurred on coumadin. Now on Eliquis Acute on chronic systolic CHF: Improved with diuresis. Paroxysmal afib: not previously present, occurred during recent hospitalization. On Eliquis. Appears to be in sinus on exam CAD s/p CABG 2009 AAA: now >5cm per pt and plan for EVAR soon with Dr. Abreu Ischemic cardiomyopathy EF 40-45% Trifascicular block h/o DVT previously on coumadin and s/p IVC HTN CKD (Cr baseline 1.3) -continue bumex 1mg daily -Eliquis 5mg BID -lipitor 20mg -coreg 3.125mg BID Consultation Date/Type/Reason Admit Date/Time February 17, 2019 at 15:45 Initial Consult Date 02/19/19 Type of Consult Cardiology Date/Time of Note DATE: 02/24/19 TIME: 11:18 24 HR Interval Summary Free Text/Dictation Bumex decreased due to worsening renal function and also with orthostatic hypotension. Now doing better. Leg edema improved. Still with SOB Exam/Review of Systems Vital Signs Vitals Vital Signs Date Temp Pulse Resp B/P (MAP) Pulse Ox O2 O2 Flow FiO2 Time Delivery Rate 02/24/19 75 18 97 Nasal 2.0 08:05 Cannula 02/23/19 98.0 129/84 20:00 (99) Intake and Output 02/23/19 02/23/19 02/24/19 1515:00 23:00 07:00 IntakeIntake Total 400 ml 440 ml OutputOutput Total 450 ml 350 ml 300 ml BalanceBalance -50 ml 90 ml -300 ml Exam Constitutional: alert, oriented Neck: No jvd Respiratory: crackles/rales (at bases), diminished breath sounds; No clear to auscultation Cardiovascular: edema (1+) Gastrointestinal: soft, non-tender; No distended Musculoskeletal: No nl extremities to inspection Neurological: nl mental status, nl speech Labs Result Diagram: 02/24/1960402/24/19604 Results 24hrs Laboratory Tests Test 02/24/19 06:05 White Blood Count 6.5 # Red Blood Count 3.62 L Hemoglobin 11.3 L Hematocrit 36.9 L Mean Corpuscular Volume 101.9 H Mean Corpuscular Hemoglobin 31.2 Mean Corpuscular Hemoglobin Concent 30.6 L Red Cell Distribution Width 16.3 H Platelet Count 163 # Mean Platelet Volume 11.4 H Immature Granulocytes % 0.600 H Neutrophils % 66.8 Lymphocytes % 19.0 Monocytes % 11.6 H Eosinophils % 1.5 Basophils % 0.5 Nucleated Red Blood Cells % 0.0 Immature Granulocytes # 0.040 H Neutrophils # 4.3 Lymphocytes # 1.2 Monocytes # 0.8 Eosinophils # 0.1 Basophils # 0.0 Nucleated Red Blood Cells # 0.0 Sodium Level 141 Potassium Level 4.0 Chloride Level 101 Carbon Dioxide Level 30 Anion Gap 10 Blood Urea Nitrogen 35 H Creatinine 1.31 H Est Glomerular Filtrat Rate mL/min Glucose Level 132 Calcium Level 9.1 Phosphorus Level 4.0 Magnesium Level 2.3 Medications Medications Current Medications Docusate Sodium (Colace) 100 mg BID PO Last administered on 02/24/19 08:57; Admin Dose 100 MG; Start 02/17/19 at 21:00 Senna (Senokot) 1 tab HS PO Last administered on 02/23/19 20:57; Admin Dose 1 TAB; Start 02/17/19 at 21:00 Magnesium Hydroxide (Milk Of Mag) 30 ml BID PRN PO CONSTIPATION Last administered on 02/21/19 17:09; Admin Dose 30 ML; Start 02/17/19 at 16:30 Lactulose (Enulose) 20 gm DAILY PRN PO CONSTIPATION Last administered on 02/22/19 13:56; Admin Dose 20 GM; Start 02/17/19 at 16:30 Bisacodyl (Dulcolax Supp) 10 mg DAILY PRN [place] CONSTIPATION Last administered on 02/23/19 06:45; Admin Dose 10 MG; Start 02/17/19 at 16:30 Acetaminophen (Tylenol Tab) 650 mg Q4H PRN PO PAIN; Start 02/17/19 at 16:30 Miscellaneous [facility] This patient cornejo... PRN PRN XX WOUND CARE; Start 02/17/19 at 16:30 Apixaban (Eliquis) 5 mg BID PO Last administered on 02/24/19 08:56; Admin Dose 5 MG; Start 02/17/19 at 21:00 Atorvastatin Calcium (Lipitor) 20 mg HS PO Last administered on 02/23/19 20:57; Admin Dose 20 MG; Start 02/17/19 at 21:00 Carvedilol (Coreg) 3.125 mg BID PO Last administered on 02/24/19 08:57; Admin Dose 3.125 MG; Start 02/17/19 at 21:00 Cyanocobalamin (Vitamin B12) 1,000 mcg DAILY PO Last administered on 02/24/19 08:57; Admin Dose 1,000 MCG; Start 02/18/19 at 09:00 Acetaminophen/ Hydrocodone Bitart ([place] (10/325)) 1 tab Q12H PRN PO MODERATE PAIN LEVEL 4-6 Last administered on 02/22/19 13:56; Admin Dose 1 TAB; Start 02/17/19 at 17:00 Ipratropium [place] (Atrovent 0.02% (Neb)) 0.5 mg Q6H RESP THERAPY HHN Last administered on 02/24/19 08:04; Admin Dose 0.5 MG; Start 02/17/19 at 20:00 Memantine (Namenda) 5 mg BID PO Last administered on 02/24/19 08:56; Admin Dose 5 MG; Start 02/17/19 at 21:00 Oxybutynin Chloride (Ditropan) 5 mg BID PO Last administered on 02/24/19 08:56; Admin Dose 5 MG; Start 02/17/19 at 21:00 Pregabalin (Lyrica) 200 mg BID PO Last administered on 02/24/19 08:54; Admin Dose 200 MG; Start 02/17/19 at 21:00 Trazodone HCl (Desyrel) 150 mg HS PO Last administered on 02/23/19 20:57; Admin Dose 150 MG; Start 02/17/19 at 21:00 Ropinirole HCl (Requip) 0.5 mg DAILY PO Last administered on 02/24/19 08:58; Admin Dose 0.5 MG; Start 02/18/19 at 09:00 Multivitamins Therapeutic (Theragran) 1 tab DAILY PO Last administered on 02/24/19 08:57; Admin Dose 1 TAB; Start 02/19/19 at 09:00 Zinc Sulfate (Zinc Sulfate) 220 mg DAILY PO Last administered on 02/24/19 08:57; Admin Dose 220 MG; Start 02/19/19 at 09:00 Patient Own Medication 1 ea DAILY PRN PO CONSTIPATION; Start 02/19/19 at 12:00 Ascorbic Acid (Vitamin C) 250 mg BID PO Last administered on 02/24/19at 08:58; Admin Dose 250 MG; Start 02/22/19 at 21:00 Bumetanide (Bumex) 1 mg DAILY PO Last administered on 02/24/19 08:57; Admin Dose 1 MG; Start 02/24/19 at 09:00 Nystatin (Nystatin Powder) 1 applic BID TOP Last administered on 02/24/19at 08:59; Admin Dose 1 APPLIC; Start 02/23/19 at 21:00 BIENVENIDO CAMARENA February 24, 2019 11:20
[2019-02-24 14:00] VITALS: BP 114/67; PULSE 65; RESP 18
--- NOTE | 2019-02-24 14:43 | PN ---
Date/Time of Note Date/Time of Note DATE: 02/24/19 TIME: 14:42 Subjective Comfortable Objective Vital Signs Date Temp Pulse Resp B/P (MAP) Pulse Ox O2 O2 Flow FiO2 Time Delivery Rate 02/24/19 75 18 97 Nasal 2.0 08:05 Cannula 02/24/19 97.8 131/83 08:00 (99) Intake and Output 02/23/19 02/23/19 02/24/19 1414:59 22:59 06:59 IntakeIntake Total 400 ml 440 ml OutputOutput Total 450 ml 350 ml 300 ml BalanceBalance -50 ml 90 ml -300 ml Exam pulm-cta max transfer Results/Medications Result Diagram: 02/24/19 0602/24/19 06 Results 24 hrs Laboratory Tests Test 02/24/19 06:05 White Blood Count 6.5 # Red Blood Count 3.62 L Hemoglobin 11.3 L Hematocrit 36.9 L Mean Corpuscular Volume 101.9 H Mean Corpuscular Hemoglobin 31.2 Mean Corpuscular Hemoglobin Concent 30.6 L Red Cell Distribution Width 16.3 H Platelet Count 163 # Mean Platelet Volume 11.4 H Immature Granulocytes % 0.600 H Neutrophils % 66.8 Lymphocytes % 19.0 Monocytes % 11.6 H Eosinophils % 1.5 Basophils % 0.5 Nucleated Red Blood Cells % 0.0 Immature Granulocytes # 0.040 H Neutrophils # 4.3 Lymphocytes # 1.2 Monocytes # 0.8 Eosinophils # 0.1 Basophils # 0.0 Nucleated Red Blood Cells # 0.0 Sodium Level 141 Potassium Level 4.0 Chloride Level 101 Carbon Dioxide Level 30 Anion Gap 10 Blood Urea Nitrogen 35 H Creatinine 1.31 H Est Glomerular Filtrat Rate mL/min Glucose Level 132 Calcium Level 9.1 Phosphorus Level 4.0 Magnesium Level 2.3 Medications Current Medications Docusate Sodium (Colace) 100 mg BID PO Last administered on 02/24/19at 08:57; Admin Dose 100 MG; Start 02/17/19 at 21:00 Senna (Senokot) 1 tab HS PO Last administered on 02/23/19at 20:57; Admin Dose 1 TAB; Start 02/17/19 at 21:00 Magnesium Hydroxide (Milk Of Mag) 30 ml BID PRN PO CONSTIPATION Last administered on 02/21/19at 17:09; Admin Dose 30 ML; Start 02/17/19 at 16:30 Lactulose (Enulose) 20 gm DAILY PRN PO CONSTIPATION Last administered on 02/22/19 13:56; Admin Dose 20 GM; Start 02/17/19 at 16:30 Bisacodyl (Dulcolax Supp) 10 mg DAILY PRN [place] CONSTIPATION Last administered on 02/23/19 06:45; Admin Dose 10 MG; Start 02/17/19 at 16:30 Acetaminophen (Tylenol Tab) 650 mg Q4H PRN PO PAIN; Start 02/17/19 at 16:30 Miscellaneous Information (Pending [facility] Order For Wound Care) This patient cornejo... PRN PRN XX WOUND CARE; Start 02/17/19 at 16:30 Apixaban (Eliquis) 5 mg BID PO Last administered on 02/24/19 08:56; Admin Dose 5 MG; Start 02/17/19 at 21:00 Atorvastatin Calcium (Lipitor) 20 mg HS PO Last administered on 02/23/19 20:57; Admin Dose 20 MG; Start 02/17/19 at 21:00 Carvedilol (Coreg) 3.125 mg BID PO Last administered on 02/24/19 08:57; Admin Dose 3.125 MG; Start 02/17/19 at 21:00 Cyanocobalamin (Vitamin B12) 1,000 mcg DAILY PO Last administered on 02/24/19 08:57; Admin Dose 1,000 MCG; Start 02/18/19 at 09:00 Acetaminophen/ Hydrocodone Bitart ([place] (10/325)) 1 tab Q12H PRN PO MODERATE PAIN LEVEL 4-6 Last administered on 02/22/19 13:56; Admin Dose 1 TAB; Start 02/17/19 at 17:00 Ipratropium [place] (Atrovent 0.02% (Neb)) 0.5 mg Q6H RESP THERAPY HHN Last administered on 02/24/19 08:04; Admin Dose 0.5 MG; Start 02/17/19 at 20:00 Memantine (Namenda) 5 mg BID PO Last administered on 02/24/19 08:56; Admin Dose 5 MG; Start 02/17/19 at 21:00 Oxybutynin Chloride (Ditropan) 5 mg BID PO Last administered on 02/24/19 08:56; Admin Dose 5 MG; Start 02/17/19 at 21:00 Pregabalin (Lyrica) 200 mg BID PO Last administered on 02/24/19 08:54; Admin Dose 200 MG; Start 02/17/19 at 21:00 Trazodone HCl (Desyrel) 150 mg HS PO Last administered on 02/23/19 20:57; Admin Dose 150 MG; Start 02/17/19 at 21:00 Ropinirole HCl (Requip) 0.5 mg DAILY PO Last administered on 02/24/19 08:58; Admin Dose 0.5 MG; Start 02/18/19 at 09:00 Multivitamins Therapeutic (Theragran) 1 tab DAILY PO Last administered on 02/24/19 08:57; Admin Dose 1 TAB; Start 02/19/19 at 09:00 Zinc Sulfate (Zinc Sulfate) 220 mg DAILY PO Last administered on 02/24/19 08:57; Admin Dose 220 MG; Start 02/19/19 at 09:00 Patient Own Medication 1 ea DAILY PRN PO CONSTIPATION; Start 02/19/19 at 12:00 Ascorbic Acid (Vitamin C) 250 mg BID PO Last administered on 02/24/19 08:58; Admin Dose 250 MG; Start 02/22/19 at 21:00 Bumetanide (Bumex) 1 mg DAILY PO Last administered on 02/24/19 08:57; Admin Dose 1 MG; Start 02/24/19 at 09:00 Nystatin (Nystatin Powder) 1 applic BID TOP Last administered on 02/24/19 08:59; Admin Dose 1 APPLIC; Start 02/23/19 at 21:00 Assessment/Plan Additional Assessment/Plan rehab- Critical illness myopathy, debility status post congestive heart failure exacerbation. Continue rehab program Recent left distal femur fracture status post open reduction internal fixation. Acute on chronic renal failure. Acute on chronic congestive heart failure. Atrial fibrillation. History of non-ST elevation myocardial infarction. History of deep venous thrombosis and pulmonary embolism, status post inferior vena cava filter. Diabetes mellitus type 2. History of aortic aneurysm. Venous stasis changes. Incontinent, Moisture associated dermatitis in the sacral region. Right medial malleolus ulceration. FELIPE GRULLON MD February 24, 2019 14:43
[2019-02-24 20:57] VITALS: BP 115/64; PULSE 58; RESP 18
[2019-02-24] MEDS: ATORVASTATIN 20 MG TAB PO SCH (21:00)
[2019-02-24] MEDS: SENNA TAB PO SCH (21:00)
[2019-02-24] MEDS: traZODone 50 MG TAB PO SCH (21:01)
[2019-02-24] MEDS: HYDROCODONE/APAP (10/325) TAB PO PRN (21:03)
[2019-02-25] MEDS: IPRATROPIUM (NEB) 0.5 MG/2.5 ML AMP HHN SCH ×5 (02:00→21:25)
[2019-02-25 04:00] VITALS: BP 101/58; PULSE 89; RESP 18
[2019-02-25 08:00] VITALS: BP 111/71; PULSE 73; RESP 18
--- NOTE | 2019-02-25 09:01 | PN ---
DATE: 02/25/2019 SUBJECTIVE: The patient is stable, no events overnight. OBJECTIVE: VITAL SIGNS: Blood pressure is 111/71, pulse 73, respiration 18, temperature 97.0. HEENT: Head is normocephalic. NECK: Supple. HEART: Regular rate. LUNGS: Show diminished breath sounds at the base. ABDOMEN: Soft, nontender to palpation without rebound or guarding. EXTREMITIES: Negative for clubbing, cyanosis. Trace edema. DERMATOLOGIC: No rashes. MUSCULOSKELETAL: No joint effusion. NEUROLOGIC: No change in exam. MEDICATIONS: Reviewed. LABORATORY DATA: Has been reviewed. ASSESSMENT AND PLAN: 1. Acute pulmonary embolism, acute right lower extremity deep venous thrombosis. Patient is current ly stable. Continue Eliquis. 2. Acute respiratory failure secondary to PE, congestive heart failure exacerbation. The patient is clinically improving. Continue nasal cannula. 3. Acute on chronic diastolic heart failure. The patient is clinically improving. Continue diureti c regimen. 4. Nonoliguric acute kidney injury on top of chronic kidney disease. The patient's renal function s tabilized. Continue current treatment plan. Supportive care, renally dose all meds. 5. Alkalosis, resolved. 6. Coronary artery disease, history of coronary artery bypass graft. Continue medical management. 7. Hypertension. Continue current blood pressure regimen. 8. Dyslipidemia. Continue statin therapy. 9. Neuropathy versus restless leg syndrome. Continue medical management. 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 11. Lower extremity wounds. Continue wound care. 12. Constipation. Continue current bowel regimen. 13. Status post left femoral open reduction internal fixation. Continue physical therapy. 14. History of aortic aneurysm. The patient is pending transfer tomorrow for surgical repair. 15. Gastrointestinal and deep venous thrombosis prophylaxis. Dictated By: KANDI OKEEFE DO NR/NTS Conf#: [id number] DID#: [id number] CC: FELIPE GRULLON MD;*EndCC*
[2019-02-25] MEDS: ROPINIROLE 0.25 MG TAB PO SCH (09:23)
[2019-02-25] MEDS: BUMETANIDE 1 MG TAB PO SCH (09:24)
[2019-02-25] MEDS: DOCUSATE SODIUM 100 MG CAP PO SCH ×2 (09:24→20:43)
[2019-02-25] MEDS: CYANOCOBALAMIN 500 MCG TAB PO SCH (09:24)
[2019-02-25] MEDS: ZINC SULFATE 220 MG CAP PO SCH (09:25)
[2019-02-25] MEDS: MULTIVITAMINS THERAPEUTIC TAB PO SCH (09:25)
[2019-02-25] MEDS: ASCORBIC ACID 250 MG TAB PO SCH ×2 (09:25→20:42)
[2019-02-25] MEDS: APIXABAN 5 MG TABLET PO SCH ×2 (09:26→20:42)
[2019-02-25] MEDS: MEMANTINE 5 MG TAB PO SCH ×2 (09:26→20:40)
[2019-02-25] MEDS: PREGABALIN 50 MG CAP PO SCH ×2 (09:27→21:00)
[2019-02-25] MEDS: OXYBUTYNIN 5 MG TAB PO SCH ×2 (09:27→20:42)
[2019-02-25] MEDS: NYSTATIN 30 GM POWDER BTL TOP SCH ×2 (09:29→20:44)
--- NOTE | 2019-02-25 11:11 | CONS ---
Assessment/Plan Assessment/Plan Hospital Course (Demo Recall) Acute PE/DVT: occurred on coumadin. Now on Eliquis Acute on chronic systolic CHF: Improved with diuresis. Still mildly decompensated Paroxysmal afib: not previously present, occurred during recent hospitalization. On Eliquis. Appears to be in sinus on exam CAD s/p CABG 2009 AAA: now >5cm per pt and plan for EVAR soon with Dr. Abreu Ischemic cardiomyopathy EF 40-45% Trifascicular block h/o DVT previously on coumadin and s/p IVC HTN CKD (Cr baseline 1.3) -continue bumex 1mg daily, could consider increasing to BID for a few days -Eliquis 5mg BID -lipitor 20mg -coreg 3.125mg BID Consultation Date/Type/Reason Admit Date/Time February 17, 2019 at 15:45 Initial Consult Date 02/19/19 Type of Consult Cardiology Date/Time of Note DATE: 02/25/19 TIME: 11:10 24 HR Interval Summary Free Text/Dictation No events. No complaints. SOB still persists but improving Exam/Review of Systems Vital Signs Vitals Vital Signs Date Temp Pulse Resp B/P (MAP) Pulse Ox O2 O2 Flow FiO2 Time Delivery Rate 02/25/19 82 17 96 Nasal 2.0 11:06 Cannula 02/25/19 97.0 111/71 08:00 (84) Intake and Output 02/24/19 02/24/19 02/25/19 1515:00 23:00 07:00 IntakeIntake Total 200 ml 500 ml 200 ml OutputOutput Total 350 ml 550 ml 400 ml BalanceBalance -150 ml -50 ml -200 ml Exam Constitutional: alert, oriented Neck: jvd (8cm) Respiratory: crackles/rales; No clear to auscultation Cardiovascular: regular rate and rhythm, edema (1+) Gastrointestinal: soft, non-tender; No distended Neurological: nl mental status, nl speech Labs Result Diagram: 02/24/1960402/24/19604 Medications Medications Current Medications Docusate Sodium (Colace) 100 mg BID PO Last administered on 02/25/19at 09:24; Admin Dose 100 MG; Start 02/17/19 at 21:00 Senna (Senokot) 1 tab HS PO Last administered on 02/24/19at 21:00; Admin Dose 1 TAB; Start 02/17/19 at 21:00 Magnesium Hydroxide (Milk Of Mag) 30 ml BID PRN PO CONSTIPATION Last administered on 02/21/19 17:09; Admin Dose 30 ML; Start 02/17/19 at 16:30 Lactulose (Enulose) 20 gm DAILY PRN PO CONSTIPATION Last administered on 02/22/19 13:56; Admin Dose 20 GM; Start 02/17/19 at 16:30 Bisacodyl (Dulcolax Supp) 10 mg DAILY PRN [place] CONSTIPATION Last administered on 02/23/19 06:45; Admin Dose 10 MG; Start 02/17/19 at 16:30 Acetaminophen (Tylenol Tab) 650 mg Q4H PRN PO PAIN; Start 02/17/19 at 16:30 [facility]isc[facility] This patient cornejo... PRN PRN XX WOUND CARE; Start 02/17/19 at 16:30 Apixaban (Eliquis) 5 mg BID PO Last administered on 02/25/19 09:26; Admin Dose 5 MG; Start 02/17/19 at 21:00 Atorvastatin Calcium (Lipitor) 20 mg HS PO Last administered on 02/24/19 21:00; Admin Dose 20 MG; Start 02/17/19 at 21:00 Carvedilol (Coreg) 3.125 mg BID PO Last administered on 02/25/19 09:28; Admin Dose 3.125 MG; Start 02/17/19 at 21:00 Cyanocobalamin (Vitamin B12) 1,000 mcg DAILY PO Last administered on 02/25/19 09:24; Admin Dose 1,000 MCG; Start 02/18/19 at 09:00 Acetaminophen/ Hydrocodone Bitart ([place] (10/325)) 1 tab Q12H PRN PO MODERATE PAIN LEVEL 4-6 Last administered on 02/24/19 21:03; Admin Dose 1 TAB; Start 02/17/19 at 17:00 Ipratropium [place] (Atrovent 0.02% (Neb)) 0.5 mg Q6H RESP THERAPY HHN Last administered on 02/25/19 11:05; Admin Dose 0.5 MG; Start 02/17/19 at 20:00 Memantine (Namenda) 5 mg BID PO Last administered on 02/25/19 09:26; Admin Dose 5 MG; Start 02/17/19 at 21:00 Oxybutynin Chloride (Ditropan) 5 mg BID PO Last administered on 02/25/19 09:27; Admin Dose 5 MG; Start 02/17/19 at 21:00 Pregabalin (Lyrica) 200 mg BID PO Last administered on 02/25/19 09:27; Admin Dose 200 MG; Start 02/17/19 at 21:00 Trazodone HCl (Desyrel) 150 mg HS PO Last administered on 02/24/19 21:01; Admin Dose 150 MG; Start 02/17/19 at 21:00 Ropinirole HCl (Requip) 0.5 mg DAILY PO Last administered on 02/25/19 09:23; Admin Dose 0.5 MG; Start 02/18/19 at 09:00 Multivitamins Therapeutic (Theragran) 1 tab DAILY PO Last administered on 02/25/19 09:25; Admin Dose 1 TAB; Start 02/19/19 at 09:00 Zinc Sulfate (Zinc Sulfate) 220 mg DAILY PO Last administered on 02/25/19 09:25; Admin Dose 220 MG; Start 02/19/19 at 09:00 Patient Own Medication 1 ea DAILY PRN PO CONSTIPATION; Start 02/19/19 at 12:00 Ascorbic Acid (Vitamin C) 250 mg BID PO Last administered on 02/25/19 09:25; Admin Dose 250 MG; Start 02/22/19 at 21:00 Bumetanide (Bumex) 1 mg DAILY PO Last administered on 02/25/19 09:24; Admin Dose 1 MG; Start 02/24/19 at 09:00 Nystatin (Nystatin Powder) 1 applic BID TOP Last administered on 02/25/19 09:29; Admin Dose 1 APPLIC; Start 02/23/19 at 21:00 BIENVENIDO CAMARENA February 25, 2019 11:11
--- NOTE | 2019-02-25 13:33 | PN ---
Date/Time of Note Date/Time of Note DATE: 02/25/19 TIME: 13:32 Objective Vital Signs Date Temp Pulse Resp B/P (MAP) Pulse Ox O2 O2 Flow FiO2 Time Delivery Rate 02/25/19 82 17 96 Nasal 2.0 11:06 Cannula 02/25/19 97.0 111/71 08:00 (84) Intake and Output 02/24/19 02/24/19 02/25/19 1515:00 23:00 07:00 IntakeIntake Total 200 ml 500 ml 200 ml OutputOutput Total 350 ml 550 ml 400 ml BalanceBalance -150 ml -50 ml -200 ml Exam INTERDISCIPLINARY TEAM CONFERENCE Attended by PT, OT, ST, Semi Truck Driver, Social Work, Rehabilitation Nursing, Orthodontist Small Business Owner and TrainmanDoor To Door [employer] Generation Exam: Pulm-cta Abd-soft BOWEL- Cont BLADDER-Cont SKIN- improving OT- DRESSING-max BATHING-max TOILETING-max PT- BED MOBILITY-max TRANSFERS-max x 2 A/P- Interdisciplinary team conference held today. Please see interdisciplinary sheet. Working toward d.c. on 03/05 with post discharge follow up of physical therapy, occupational therapy. Results/Medications Result Diagram: 02/24/1960402/24/19604 Medications Current Medications Docusate Sodium (Colace) 100 mg BID PO Last administered on 02/25/19at 09:24; Admin Dose 100 MG; Start 02/17/19 at 21:00 Senna (Senokot) 1 tab HS PO Last administered on 02/24/19at 21:00; Admin Dose 1 TAB; Start 02/17/19 at 21:00 Magnesium Hydroxide (Milk Of Mag) 30 ml BID PRN PO CONSTIPATION Last administered on 02/21/19at 17:09; Admin Dose 30 ML; Start 02/17/19 at 16:30 Lactulose (Enulose) 20 gm DAILY PRN PO CONSTIPATION Last administered on 02/22/19at 13:56; Admin Dose 20 GM; Start 02/17/19 at 16:30 Bisacodyl (Dulcolax Supp) 10 mg DAILY PRN [place] CONSTIPATION Last administered on 02/23/19at 06:45; Admin Dose 10 MG; Start 02/17/19 at 16:30 Acetaminophen (Tylenol Tab) 650 mg Q4H PRN PO PAIN; Start 02/17/19 at 16:30 Miscellaneous Information (Pending [facility] Order For Wound Care) This patient cornejo... PRN PRN XX WOUND CARE; Start 02/17/19 at 16:30 Apixaban (Eliquis) 5 mg BID PO Last administered on 02/25/19 09:26; Admin Dose 5 MG; Start 02/17/19 at 21:00 Atorvastatin Calcium (Lipitor) 20 mg HS PO Last administered on 02/24/19 21:00; Admin Dose 20 MG; Start 02/17/19 at 21:00 Carvedilol (Coreg) 3.125 mg BID PO Last administered on 02/25/19 09:28; Admin Dose 3.125 MG; Start 02/17/19 at 21:00 Cyanocobalamin (Vitamin B12) 1,000 mcg DAILY PO Last administered on 02/25/19 09:24; Admin Dose 1,000 MCG; Start 02/18/19 at 09:00 Acetaminophen/ Hydrocodone Bitart ([place] (10/325)) 1 tab Q12H PRN PO MODERATE PAIN LEVEL 4-6 Last administered on 02/24/19 21:03; Admin Dose 1 TAB; Start 02/17/19 at 17:00 Ipratropium [place] (Atrovent 0.02% (Neb)) 0.5 mg Q6H RESP THERAPY HHN Last administered on 02/25/19 11:05; Admin Dose 0.5 MG; Start 02/17/19 at 20:00 Memantine (Namenda) 5 mg BID PO Last administered on 02/25/19 09:26; Admin Dose 5 MG; Start 02/17/19 at 21:00 Oxybutynin Chloride (Ditropan) 5 mg BID PO Last administered on 02/25/19 09:27; Admin Dose 5 MG; Start 02/17/19 at 21:00 Pregabalin (Lyrica) 200 mg BID PO Last administered on 02/25/19 09:27; Admin Dose 200 MG; Start 02/17/19 at 21:00 Trazodone HCl (Desyrel) 150 mg HS PO Last administered on 02/24/19 21:01; Admin Dose 150 MG; Start 02/17/19 at 21:00 Ropinirole HCl (Requip) 0.5 mg DAILY PO Last administered on 02/25/19 09:23; Admin Dose 0.5 MG; Start 02/18/19 at 09:00 Multivitamins Therapeutic (Theragran) 1 tab DAILY PO Last administered on 02/25/19 09:25; Admin Dose 1 TAB; Start 02/19/19 at 09:00 Zinc Sulfate (Zinc Sulfate) 220 mg DAILY PO Last administered on 02/25/19 09: 25; Admin Dose 220 MG; Start 02/19/19 at 09:00 Patient Own Medication 1 ea DAILY PRN PO CONSTIPATION; Start 02/19/19 at 12:00 Ascorbic Acid (Vitamin C) 250 mg BID PO Last administered on 02/25/19 09:25; Admin Dose 250 MG; Start 02/22/19 at 21:00 Bumetanide (Bumex) 1 mg DAILY PO Last administered on 02/25/19 09:24; Admin Dose 1 MG; Start 02/24/19 at 09:00 Nystatin (Nystatin Powder) 1 applic BID TOP Last administered on 02/25/19 09:29; Admin Dose 1 APPLIC; Start 02/23/19 at 21:00 FELIPE GRULLON MD February 25, 2019 13:33
[2019-02-25 14:00] VITALS: BP 111/65; PULSE 76
[2019-02-25 19:32] VITALS: BP 137/72; PULSE 76; RESP 19
[2019-02-25] MEDS: ATORVASTATIN 20 MG TAB PO SCH (20:42)
[2019-02-25] MEDS: traZODone 50 MG TAB PO SCH (20:43)
[2019-02-25] MEDS: SENNA TAB PO SCH (20:43)
[2019-02-26] MEDS: IPRATROPIUM (NEB) 0.5 MG/2.5 ML AMP HHN SCH ×4 (02:00→20:00)
[2019-02-26 07:00] VITALS: BP 152/82; PULSE 70; RESP 18
[2019-02-26] MEDS: APIXABAN 5 MG TABLET PO SCH ×2 (08:12→20:07)
[2019-02-26] MEDS: ASCORBIC ACID 250 MG TAB PO SCH ×2 (08:13→20:08)
[2019-02-26] MEDS: PREGABALIN 50 MG CAP PO SCH ×2 (08:13→20:07)
[2019-02-26] MEDS: MULTIVITAMINS THERAPEUTIC TAB PO SCH (08:13)
[2019-02-26] MEDS: ROPINIROLE 0.25 MG TAB PO SCH (08:13)
[2019-02-26] MEDS: MEMANTINE 5 MG TAB PO SCH ×2 (08:13→20:08)
[2019-02-26] MEDS: BUMETANIDE 1 MG TAB PO SCH ×2 (08:13→20:08)
[2019-02-26] MEDS: CYANOCOBALAMIN 500 MCG TAB PO SCH (08:13)
[2019-02-26] MEDS: DOCUSATE SODIUM 100 MG CAP PO SCH ×2 (08:14→20:05)
[2019-02-26] MEDS: OXYBUTYNIN 5 MG TAB PO SCH ×2 (08:14→20:07)
[2019-02-26] MEDS: ZINC SULFATE 220 MG CAP PO SCH (08:14)
[2019-02-26] MEDS: NYSTATIN 30 GM POWDER BTL TOP SCH ×2 (08:17→20:26)
--- NOTE | 2019-02-26 09:06 | PN ---
DATE: 02/26/2019 SUBJECTIVE: The patient is stable, no events overnight. Continues to have some shortness of breathe. OBJECTIVE: VITAL SIGNS: Blood pressure is 137/72, pulse 93, respirations 19, temperature 98.6. HEENT: Head is normocephalic. NECK: Supple. HEART: Regular rate. LUNGS: Show diminished breath sounds at the base. Positive crackles ABDOMEN: Soft, nontender to palpation without rebound or guarding. EXTREMITIES: Negative for clubbing, cyanosis. Positive edema. DERMATOLOGIC: No rashes. MUSCULOSKELETAL: No joint effusion. NEUROLOGIC: No change in exam. MEDICATIONS: Reviewed. LABORATORY DATA: Reviewed. ASSESSMENT AND PLAN: 1. Acute pulmonary embolism, acute right lower extremity deep vein thrombosis. Continue Eliquis. 2. Acute respiratory failure secondary to pulmonary embolism, congestive heart failure exacerbation. The patient is clinically improving. Continue current medical management. Continue nasal cannula. 3. Acute on chronic diastolic heart failure. The patient is improving. Will increase bumex to bid, watch renal function closely. 4. Nonoliguric acute kidney injury on top of chronic kidney disease. Etiology is secondary to hemodynamics. Renal function appears to be stabilizing. Continue current treatment plan, supportive care, and renally dose all medications. 5. Coronary artery disease with history of coronary artery bypass graft. Continue medical management. 6. Hypertension. Continue current blood pressure regimen. 7. Dyslipidemia. Continue statin therapy. 8. Neuropathy. Continue medical management. 9. Critical care myopathy. Continue physical therapy. 10. Lower extremity wounds. Continue wound care. 11. Constipation. Continue current bowel regimen. 12. Status post open reduction internal fixation left hip. 13. History of aortic aneurysm. The patient is pending surgical repair. 14. Gastrointestinal and deep vein thrombosis prophylaxis. Dictated By: KANDI OKEEFE DO NR/NTS Conf#: [id number] DID#: [id number] CC: MELISSA CARRINGTON DO; FELIPE GRULLON MD;*EndCC* MTDD
--- NOTE | 2019-02-26 13:24 | PN ---
Date/Time of Note Date/Time of Note DATE: 02/26/19 TIME: 13:24 Subjective No new complaints Objective Vital Signs Date Temp Pulse Resp B/P (MAP) Pulse Ox O2 O2 Flow FiO2 Time Delivery Rate 02/26/19 2.0 09:22 02/26/19 83 18 95 Nasal 09:22 Cannula 02/26/19 98.1 152/82 07:00 (105) Intake and Output 02/25/19 02/25/19 02/26/19 1515:00 23:00 07:00 IntakeIntake Total 150 ml 200 ml OutputOutput Total 370 ml 300 ml BalanceBalance -220 ml -100 ml Exam pulm-cta max assist Results/Medications Result Diagram: 02/24/1960402/24/19604 Medications Current Medications Docusate Sodium (Colace) 100 mg BID PO Last administered on 02/26/19 08:14; Admin Dose 100 MG; Start 02/17/19 at 21:00 Senna (Senokot) 1 tab HS PO Last administered on 02/25/19 20:43; Admin Dose 1 TAB; Start 02/17/19 at 21:00 Magnesium Hydroxide (Milk Of Mag) 30 ml BID PRN PO CONSTIPATION Last adminis tered on 02/21/19 17:09; Admin Dose 30 ML; Start 02/17/19 at 16:30 Lactulose (Enulose) 20 gm DAILY PRN PO CONSTIPATION Last administered on 02/22/19 13:56; Admin Dose 20 GM; Start 02/17/19 at 16:30 Bisacodyl (Dulcolax Supp) 10 mg DAILY PRN [place] CONSTIPATION Last administered on 02/23/19 06:45; Admin Dose 10 MG; Start 02/17/19 at 16:30 Acetaminophen (Tylenol Tab) 650 mg Q4H PRN PO PAIN; Start 02/17/19 at 16:30 Miscellaneous [facility] This patient cornejo... PRN PRN XX WOUND CARE; Start 02/17/19 at 16:30 Apixaban (Eliquis) 5 mg BID PO Last administered on 02/26/19 08:12; Admin Dose 5 MG; Start 02/17/19 at 21:00 Atorvastatin Calcium (Lipitor) 20 mg HS PO Last administered on 02/25/19 20:42; Admin Dose 20 MG; Start 02/17/19 at 21:00 Carvedilol (Coreg) 3.125 mg BID PO Last administered on 02/26/19 08:13; Admin Dose 3.125 MG; Start 02/17/19 at 21:00 Cyanocobalamin (Vitamin B12) 1,000 mcg DAILY PO Last administered on 02/26/19 08:13; Admin Dose 1,000 MCG; Start 02/18/19 at 09:00 Acetaminophen/ Hydrocodone Bitart ([place] (10/325)) 1 tab Q12H PRN PO MODERATE PAIN LEVEL 4-6 Last administered on 02/24/19 21:03; Admin Dose 1 TAB; Start 02/17/19 at 17:00 Ipratropium [place] (Atrovent 0.02% (Neb)) 0.5 mg Q6H RESP THERAPY HHN Last administered on 02/26/19 09:22; Admin Dose 0.5 MG; Start 02/17/19 at 20:00 Memantine (Namenda) 5 mg BID PO Last administered on 02/26/19 08:13; Admin Dose 5 MG; Start 02/17/19 at 21:00 Oxybutynin Chloride (Ditropan) 5 mg BID PO Last administered on 02/26/19 08:14; Admin Dose 5 MG; Start 02/17/19 at 21:00 Pregabalin (Lyrica) 200 mg BID PO Last administered on 02/26/19 08:13; Admin Dose 200 MG; Start 02/17/19 at 21:00 Trazodone HCl (Desyrel) 150 mg HS PO Last administered on 02/25/19 20:43; Admin Dose 150 MG; Start 02/17/19 at 21:00 Ropinirole HCl (Requip) 0.5 mg DAILY PO Last administered on 02/26/19 08:13; Admin Dose 0.5 MG; Start 02/18/19 at 09:00 Multivitamins Therapeutic (Theragran) 1 tab DAILY PO Last administered on 02/26/19 08:13; Admin Dose 1 TAB; Start 02/19/19 at 09:00 Zinc Sulfate (Zinc Sulfate) 220 mg DAILY PO Last administered on 02/26/19 08:14; Admin Dose 220 MG; Start 02/19/19 at 09:00 Patient Own Medication 1 ea DAILY PRN PO CONSTIPATION; Start 02/19/19 at 12:00 Ascorbic Acid (Vitamin C) 250 mg BID PO Last administered on 02/26/19at 08:13; Admin Dose 250 MG; Start 02/22/19 at 21:00 Nystatin (Nystatin Powder) 1 applic BID TOP Last administered on 02/26/19at 08:17; Admin Dose 1 APPLIC; Start 02/23/19 at 21:00 Bumetanide (Bumex) 1 mg BID PO ; Start 02/26/19 at 21:00 Assessment/Plan Additional Assessment/Plan rehab- Critical illness myopathy, debility status post congestive heart failure exacerbation. Continue rehab treatment plan Recent left distal femur fracture status post open reduction internal fixation. Acute on chronic renal failure. Acute on chronic congestive heart failure. Atrial fibrillation. History of non-ST elevation myocardial infarction. History of deep venous thrombosis and pulmonary embolism, status post inferior vena cava filter. Diabetes mellitus type 2. History of aortic aneurysm. Venous stasis changes. Incontinent, Moisture associated dermatitis in the sacral region- improving Right medial malleolus ulceration. FELIPE GRULLON MD February 26, 2019 13:24
[2019-02-26 14:00] VITALS: BP 112/68; PULSE 72; RESP 18
[2019-02-26 19:45] VITALS: BP 131/75; PULSE 75; RESP 18
[2019-02-26] MEDS: SENNA TAB PO SCH (20:05)
[2019-02-26] MEDS: ATORVASTATIN 20 MG TAB PO SCH (20:07)
[2019-02-26] MEDS: traZODone 50 MG TAB PO SCH (20:07)
[2019-02-26] MEDS: HYDROCODONE/APAP (10/325) TAB PO PRN (20:25)
[2019-02-27] MEDS: IPRATROPIUM (NEB) 0.5 MG/2.5 ML AMP HHN SCH ×4 (01:14→20:02)
[2019-02-27 02:00] VITALS: BP 122/70; PULSE 72; RESP 18
[2019-02-27 06:56] VITALS: BP 140/75; PULSE 75; RESP 18
[2019-02-27 07:00] VITALS: BP 134/77; PULSE 74; RESP 18
[2019-02-27] MEDS: ZINC SULFATE 220 MG CAP PO SCH (08:06)
[2019-02-27] MEDS: ASCORBIC ACID 250 MG TAB PO SCH ×2 (08:07→21:00)
[2019-02-27] MEDS: MULTIVITAMINS THERAPEUTIC TAB PO SCH (08:07)
[2019-02-27] MEDS: CYANOCOBALAMIN 500 MCG TAB PO SCH (08:07)
[2019-02-27] MEDS: PREGABALIN 50 MG CAP PO SCH ×2 (08:07→20:53)
[2019-02-27] MEDS: APIXABAN 5 MG TABLET PO SCH ×2 (08:07→20:54)
[2019-02-27] MEDS: DOCUSATE SODIUM 100 MG CAP PO SCH ×2 (08:07→20:54)
[2019-02-27] MEDS: BUMETANIDE 1 MG TAB PO SCH ×2 (08:07→20:53)
[2019-02-27] MEDS: MEMANTINE 5 MG TAB PO SCH ×2 (08:08→20:55)
[2019-02-27] MEDS: OXYBUTYNIN 5 MG TAB PO SCH ×2 (08:08→20:55)
[2019-02-27] MEDS: ROPINIROLE 0.25 MG TAB PO SCH (08:08)
[2019-02-27] MEDS: NYSTATIN 30 GM POWDER BTL TOP SCH ×2 (08:08→20:56)
--- NOTE | 2019-02-27 09:39 | PN ---
DATE: 02/27/2019 SUBJECTIVE: The patient is stable, no events overnight. OBJECTIVE: VITAL SIGNS: Blood pressure is 140/75, respirations 18, pulse 75, temperature 98.4. HEENT: Head is normocephalic. NECK: Supple. HEART: Regular rate. LUNGS: Show diminished breath sounds at the base. ABDOMEN: Soft, nontender to palpation without rebound or guarding. EXTREMITIES: Negative for clubbing, cyanosis. Trace edema. DERMATOLOGIC: No rashes. MUSCULOSKELETAL: No joint effusion. NEUROLOGIC: No change in exam. MEDICATIONS: Reviewed. LABORATORY DATA: Pending. ASSESSMENT AND PLAN: 1. Acute pulmonary embolism, acute right lower extremity deep vein thrombosis. Continue Eliquis. 2. Acute respiratory failure secondary to pulmonary embolism, congestive heart failure, improving. Continue medical management. Continue nasal cannula. 3. Acute on chronic heart failure, clinically improving. Diuretics were adjusted. Continue to cris tor. 4. Nonoliguric acute kidney injury on top of chronic kidney disease. Etiology is secondary to hemod ynamics. Renal function appears to be stabilizing. Continue to monitor renal function and electroly ashvin closely. 5. Coronary artery disease with history of coronary artery bypass graft. Continue medical managemen t. 6. Hypertension. Continue current blood pressure regimen. 7. Dyslipidemia. Continue statin therapy. 8. Neuropathy. Continue medical management. 9. Critical care myopathy, improving. Continue physical therapy. 10. Lower extremity wounds. Continue wound care. 11. Constipation. Continue current bowel regimen. 12. Hip fracture status post open reduction internal fixation. 13. History of aortic aneurysm pending surgical repair. 14. Gastrointestinal and deep vein thrombosis prophylaxis. Dictated By: KANDI OKEEFE DO NR/NTS Conf#: [id number] DID#: [id number] CC: MELISSA CARRINGTON DO; FELIPE GRULLON MD;*EndCC*
--- NOTE | 2019-02-27 09:53 | PN ---
Date/Time of Note Date/Time of Note DATE: 02/27/19 TIME: 09:53 Subjective Resting Objective Vital Signs Date Temp Pulse Resp B/P (MAP) Pulse Ox O2 O2 Flow FiO2 Time Delivery Rate 02/27/19 Nasal 2.5 07:51 Cannula 02/27/19 98.7 74 18 134/77 97 07:00 (96) Intake and Output 02/26/19 02/26/19 02/27/19 1515:00 23:00 07:00 IntakeIntake Total 1680 ml 1050 ml OutputOutput Total 800 ml 640 ml BalanceBalance 880 ml 410 ml Exam pulm-cta max assist Results/Medications Result Diagram: 02/24/1960402/24/19604 Medications Current Medications Docusate Sodium (Colace) 100 mg BID PO Last administered on 02/27/19 08:07; Admin Dose 100 MG; Start 02/17/19 at 21:00 Senna (Senokot) 1 tab HS PO Last administered on 02/26/19 20:05; Admin Dose 1 TAB; Start 02/17/19 at 21:00 Magnesium Hydroxide (Milk Of Mag) 30 ml BID PRN PO CONSTIPATION Last administered on 02/21/19 17:09; Admin Dose 30 ML; Start 02/17/19 at 16:30 Lactulose (Enulose) 20 gm DAILY PRN PO CONSTIPATION Last administered on 02/22/19at 13:56; Admin Dose 20 GM; Start 02/17/19 at 16:30 Bisacodyl (Dulcolax Supp) 10 mg DAILY PRN [place] CONSTIPATION Last administered on 02/23/19at 06:45; Admin Dose 10 MG; Start 02/17/19 at 16:30 Acetaminophen (Tylenol Tab) 650 mg Q4H PRN PO PAIN; Start 02/17/19 at 16:30 Miscellaneous Information (Pending [facility] Order For Wound Care) This patient cornejo... PRN PRN XX WOUND CARE; Start 02/17/19 at 16:30 Apixaban (Eliquis) 5 mg BID PO Last administered on 02/27/19 08:07; Admin Dose 5 MG; Start 02/17/19 at 21:00 Atorvastatin Calcium (Lipitor) 20 mg HS PO Last administered on 02/26/19at 2 0:07; Admin Dose 20 MG; Start 02/17/19 at 21:00 Carvedilol (Coreg) 3.125 mg BID PO Last administered on 02/27/19 08:07; Admin Dose 3.125 MG; Start 02/17/19 at 21:00 Cyanocobalamin (Vitamin B12) 1,000 mcg DAILY PO Last administered on 02/27/19 08:07; Admin Dose 1,000 MCG; Start 02/18/19 at 09:00 Acetaminophen/ Hydrocodone Bitart ([place] (10/325)) 1 tab Q12H PRN PO MODERATE PAIN LEVEL 4-6 Last administered on 02/26/19 20:25; Admin Dose 1 TAB; Start 02/17/19 at 17:00 Ipratropium [place] (Atrovent 0.02% (Neb)) 0.5 mg Q6H RESP THERAPY HHN Last administered on 02/26/19 20:00; Admin Dose 0.5 MG; Start 02/17/19 at 20:00 Memantine (Namenda) 5 mg BID PO Last administered on 02/27/19 08:08; Admin Dose 5 MG; Start 02/17/19 at 21:00 Oxybutynin Chloride (Ditropan) 5 mg BID PO Last administered on 02/27/19 08:08; Admin Dose 5 MG; Start 02/17/19 at 21:00 Pregabalin (Lyrica) 200 mg BID PO Last administered on 02/27/19 08:07; Admin Dose 200 MG; Start 02/17/19 at 21:00 Trazodone HCl (Desyrel) 150 mg HS PO Last administered on 02/26/19 20:07; Admin Dose 150 MG; Start 02/17/19 at 21:00 Ropinirole HCl (Requip) 0.5 mg DAILY PO Last administered on 02/27/19 08:08; Admin Dose 0.5 MG; Start 02/18/19 at 09:00 Multivitamins Therapeutic (Theragran) 1 tab DAILY PO Last administered on 08:07; Admin Dose 1 TAB; Start 02/19/19 at 09:00 Zinc Sulfate (Zinc Sulfate) 220 mg DAILY PO Last administered on 02/27/19 08:06; Admin Dose 220 MG; Start 02/19/19 at 09:00 Patient Own Medication 1 ea DAILY PRN PO CONSTIPATION; Start 02/19/19 at 12:00 Ascorbic Acid (Vitamin C) 250 mg BID PO Last administered on 02/27/19 08:07; Admin Dose 250 MG; Start 02/22/19 at 21:00 Nystatin (Nystatin Powder) 1 applic BID TOP Last administered on 02/27/19 08:08; Admin Dose 1 APPLIC; Start 02/23/19 at 21:00 Bumetanide (Bumex) 1 mg BID PO Last administered on 02/27/19 08:07; Admin Dose 1 MG; Start 02/26/19 at 21:00 Assessment/Plan Additional Assessment/Plan rehab- Critical illness myopathy, debility status post congestive heart failure exacerbation. Continue rehab Recent left distal femur fracture status post open reduction internal fixation. Acute on chronic renal failure. Acute on chronic congestive heart failure. Atrial fibrillation. History of non-ST elevation myocardial infarction. History of deep venous thrombosis and pulmonary embolism, status post inferior vena cava filter. Diabetes mellitus type 2. History of aortic aneurysm. Venous stasis changes. Incontinent, Moisture associated dermatitis in the sacral region- improving Right medial malleolus ulceration. FELIPE GRULLON MD February 27, 2019 09:53
[2019-02-27] MEDS: HYDROCODONE/APAP (10/325) TAB PO PRN (12:43)
[2019-02-27 14:00] VITALS: BP 109/62; PULSE 70; RESP 18
[2019-02-27 19:24] VITALS: BP 129/74; PULSE 68; RESP 18
[2019-02-27] MEDS: SENNA TAB PO SCH (20:54)
[2019-02-27] MEDS: ATORVASTATIN 20 MG TAB PO SCH (20:54)
[2019-02-27] MEDS: traZODone 50 MG TAB PO SCH (20:54)
[2019-02-28] MEDS: IPRATROPIUM (NEB) 0.5 MG/2.5 ML AMP HHN SCH ×4 (01:38→19:39)
[2019-02-28 02:00] VITALS: BP 124/68; PULSE 72; RESP 18
[2019-02-28 07:00] VITALS: BP 133/78; PULSE 62; RESP 18
[2019-02-28] MEDS: PREGABALIN 50 MG CAP PO SCH (08:43)
[2019-02-28] MEDS: MULTIVITAMINS THERAPEUTIC TAB PO SCH (08:44)
[2019-02-28] MEDS: ASCORBIC ACID 250 MG TAB PO SCH ×2 (08:44→21:08)
[2019-02-28] MEDS: APIXABAN 5 MG TABLET PO SCH ×2 (08:44→21:08)
[2019-02-28] MEDS: OXYBUTYNIN 5 MG TAB PO SCH ×2 (08:44→21:08)
[2019-02-28] MEDS: MEMANTINE 5 MG TAB PO SCH ×2 (08:44→21:08)
[2019-02-28] MEDS: ROPINIROLE 0.25 MG TAB PO SCH (08:44)
[2019-02-28] MEDS: BUMETANIDE 1 MG TAB PO SCH ×2 (08:44→21:08)
[2019-02-28] MEDS: ZINC SULFATE 220 MG CAP PO SCH (08:44)
[2019-02-28] MEDS: DOCUSATE SODIUM 100 MG CAP PO SCH ×2 (08:44→21:08)
[2019-02-28] MEDS: CYANOCOBALAMIN 500 MCG TAB PO SCH (08:44)
[2019-02-28] MEDS: NYSTATIN 30 GM POWDER BTL TOP SCH ×2 (08:45→21:09)
--- NOTE | 2019-02-28 11:45 | PN ---
DATE: 02/28/2019 SUBJECTIVE: The patient is stable. No events overnight. OBJECTIVE: VITAL SIGNS: Blood pressure is 124/68, respiration 18, pulse 72, temperature 97.8. HEENT: Head is normocephalic. NECK: Supple. HEART: Regular rate. LUNGS: Show diminished breath sounds at the base. ABDOMEN: Soft, nontender to palpation without rebound or guarding. EXTREMITIES: Negative for clubbing, cyanosis, no edema. DERMATOLOGIC: No rashes. MUSCULOSKELETAL: No joint effusion. NEUROLOGIC: No change in exam. MEDICATIONS: Reviewed. LABORATORY DATA: Has been reviewed. ASSESSMENT AND PLAN: 1. Acute pulmonary embolism, acute right lower extremity deep venous thrombosis. Continue Eliquis. 2. Acute respiratory failure secondary to pulmonary embolism, congestive heart failure, improving. Continue medical management. 3. Acute on chronic heart failure. Improving. Continue current diuretic regimen. 4. Nonoliguric acute kidney injury on chronic kidney disease. Etiology is secondary to hemodynamics . Renal function is stabilizing. Continue to monitor. 5. Coronary artery disease, history of coronary artery bypass graft. Continue medical management. 6. Hypertension. Continue current blood pressure regimen. 7. Dyslipidemia. Continue statin therapy. 8. Neuropathy. Continue medical management. 9. Critical care myopathy, improving. Continue physical therapy. 10. Lower extremity wounds. Continue wound care. 11. Constipation. Continue current bowel regimen. 12. Hip fracture status post open reduction internal fixation. 13. History of aortic aneurysm. The patient is pending a vascular repair. 14. Gastrointestinal and deep vein thrombosis prophylaxis. Dictated By: KANDI OKEEFE DO NR/NTS Conf#: [id number] DID#: [id number] CC: FELIPE GRULLON MD;*EndCC*
[2019-02-28 14:00] VITALS: BP 119/71; PULSE 65; RESP 18
[2019-02-28 20:00] VITALS: BP 112/87; PULSE 82; RESP 18
[2019-02-28] MEDS: ATORVASTATIN 20 MG TAB PO SCH (21:08)
[2019-02-28] MEDS: traZODone 50 MG TAB PO SCH (21:08)
[2019-02-28] MEDS: PREGABALIN 100 MG CAP PO SCH (21:08)
[2019-02-28] MEDS: SENNA TAB PO SCH (21:08)
[2019-03-01] MEDS: IPRATROPIUM (NEB) 0.5 MG/2.5 ML AMP HHN SCH ×4 (01:39→21:15)
[2019-03-01 02:05] VITALS: BP 139/73; PULSE 60; RESP 18
[2019-03-01 08:00] VITALS: BP 131/85; PULSE 64; RESP 20
--- NOTE | 2019-03-01 08:56 | PN ---
DATE: 03/01/2019 SUBJECTIVE: The patient is stable, no events overnight. No fevers, chills, nausea or vomiting. OBJECTIVE: VITAL SIGNS: Blood pressure is 139/73, pulse 89, respirations 20, temperature 98.4. HEENT: Head is normocephalic. NECK: Supple. HEART: Regular rate. LUNGS: Show diminished breath sounds at the base. ABDOMEN: Soft, nontender to palpation without rebound or guarding. EXTREMITIES: Negative for clubbing, cyanosis, no edema. DERMATOLOGIC: No rashes. MUSCULOSKELETAL: No joint effusion. NEUROLOGIC: No change in exam. MEDICATIONS: Reviewed. LABORATORY DATA: Reviewed. ASSESSMENT AND PLAN: 1. Acute pulmonary embolism, acute right lower extremity deep vein thrombosis. The patient is stabl e. Continue Eliquis. 2. Acute respiratory failure secondary to pulmonary embolism, congestive heart failure, improving.. Continue medical management. 3. Acute on chronic heart failure, improving. The patient appears euvolemic. Continue current diur etic regimen. 4. Nonoliguric acute kidney injury on top of chronic kidney disease. Etiology is secondary to hemod ynamics. Renal function is fluctuating, but overall stable. Continue to monitor. Repeat renal pane l. 5. Coronary artery disease status post coronary artery bypass graft. Continue medical management. 6. Hypertension. Continue current blood pressure regimen. 7. Dyslipidemia. Continue statin therapy. 8. Neuropathy. Continue current treatment plan. 9. Critical care myopathy, improving. Continue physical therapy. 10. Lower extremity wounds. Continue wound care. 11. Constipation. Continue current bowel regimen. 12. Right femoral fracture, status post open reduction internal fixation. 13. History of aortic aneurysm. The patient will require outpatient endovascular repair. 14. Gastrointestinal and deep vein thrombosis prophylaxis. Dictated By: KANDI OKEEFE DO NR/NTS Conf#: [id number] DID#: [id number] CC: MELISSA CARRINGTON DO; FELIPE GRULLON MD;*EndCC*
[2019-03-01] MEDS: PATIENT'S OWN MEDICATION PO PRN (09:33)
[2019-03-01] MEDS: DOCUSATE SODIUM 100 MG CAP PO SCH ×2 (09:34→20:46)
[2019-03-01] MEDS: ASCORBIC ACID 250 MG TAB PO SCH ×2 (09:34→20:40)
[2019-03-01] MEDS: APIXABAN 5 MG TABLET PO SCH ×2 (09:35→20:39)
[2019-03-01] MEDS: ZINC SULFATE 220 MG CAP PO SCH (09:35)
[2019-03-01] MEDS: CYANOCOBALAMIN 500 MCG TAB PO SCH (09:35)
[2019-03-01] MEDS: OXYBUTYNIN 5 MG TAB PO SCH ×2 (09:35→20:39)
[2019-03-01] MEDS: BUMETANIDE 1 MG TAB PO SCH ×2 (09:35→20:39)
[2019-03-01] MEDS: PREGABALIN 100 MG CAP PO SCH ×2 (09:35→20:40)
[2019-03-01] MEDS: ROPINIROLE 0.25 MG TAB PO SCH (09:35)
[2019-03-01] MEDS: MEMANTINE 5 MG TAB PO SCH ×2 (09:35→20:40)
[2019-03-01] MEDS: MULTIVITAMINS THERAPEUTIC TAB PO SCH (09:35)
[2019-03-01] MEDS: NYSTATIN 30 GM POWDER BTL TOP SCH ×2 (09:36→20:42)
[2019-03-01] MEDS: LACTULOSE 30ML CUP PO PRN (09:36)
--- NOTE | 2019-03-01 10:37 | PN ---
Date/Time of Note Date/Time of Note DATE: 03/01/19 TIME: 10:36 Subjective Feeling stronger Objective Vital Signs Date Temp Pulse Resp B/P (MAP) Pulse Ox O2 O2 Flow FiO2 Time Delivery Rate 03/01/19 97.8 60 18 139/73 96 Nasal 2.0 02:05 (95) Cannula Intake and Output 02/28/19 02/28/19 03/01/19 1515:00 23:00 07:00 IntakeIntake Total 1400 ml OutputOutput Total 350 ml 1100 ml 500 ml BalanceBalance -350 ml 300 ml -500 ml Exam pulm-cta abd-soft min transfer Results/Medications Result Diagram: 02/27/19 0853 Medications Current Medications Docusate Sodium (Colace) 100 mg BID PO Last administered on 03/01/19 09:34; Admin Dose 100 MG; Start 02/17/19 at 21:00 Senna (Senokot) 1 tab HS PO Last administered on 02/28/19 21:08; Admin Dose 1 TAB; Start 02/17/19 at 21:00 Magnesium Hydroxide (Milk Of Mag) 30 ml BID PRN PO CONSTIPATION Last administered on 02/21/19 17:09; Admin Dose 30 ML; Start 02/17/19 at 16:30 Lactulose (Enulose) 20 gm DAILY PRN PO CONSTIPATION Last administered on 03/01/19 09:36; Admin Dose 20 GM; Start 02/17/19 at 16:30 Bisacodyl (Dulcolax Supp) 10 mg DAILY PRN [place] CONSTIPATION Last administered on 02/23/19 06:45; Admin Dose 10 MG; Start 02/17/19 at 16:30 Acetaminophen (Tylenol Tab) 650 mg Q4H PRN PO PAIN; Start 02/17/19 at 16:30 Miscellaneous Information (Pending [facility] Order For Wound Care) This patient cornejo... PRN PRN XX WOUND CARE; Start 02/17/19 at 16:30 Apixaban (Eliquis) 5 mg BID PO Last administered on 03/01/19 09:35; Admin Dose 5 MG; Start 02/17/19 at 21:00 Atorvastatin Calcium (Lipitor) 20 mg HS PO Last administered on 02/28/19 21:08; Admin Dose 20 MG; Start 02/17/19 at 21:00 Carvedilol (Coreg) 3.125 mg BID PO Last administered on 03/01/19 09:35; Admin Dose 3.125 MG; Start 02/17/19 at 21:00 Cyanocobalamin (Vitamin B12) 1,000 mcg DAILY PO Last administered on 03/01/19 09:35; Admin Dose 1,000 MCG; Start 02/18/19 at 09:00 Acetaminophen/ Hydrocodone Bitart ([place] (10/325)) 1 tab Q12H PRN PO MODERATE PAIN LEVEL 4-6 Last administered on 02/27/19 12:43; Admin Dose 1 TAB; Start 02/17/19 at 17:00 Ipratropium [place] (Atrovent 0.02% (Neb)) 0.5 mg Q6H RESP THERAPY HHN Last administered on 02/28/19 19:39; Admin Dose 0.5 MG; Start 02/17/19 at 20:00 Memantine (Namenda) 5 mg BID PO Last administered on 03/01/19 09:35; Admin Dose 5 MG; Start 02/17/19 at 21:00 Oxybutynin Chloride (Ditropan) 5 mg BID PO Last administered on 03/01/19 09:35; Admin Dose 5 MG; Start 02/17/19 at 21:00 Trazodone HCl (Desyrel) 150 mg HS PO Last administered on 02/28/19 21:08; Admin Dose 150 MG; Start 02/17/19 at 21:00 Ropinirole HCl (Requip) 0.5 mg DAILY PO Last administered on 03/01/19 09:35; Admin Dose 0.5 MG; Start 02/18/19 at 09:00 Multivitamins Therapeutic (Theragran) 1 tab DAILY PO Last administered on 03/01/19 09:35; Admin Dose 1 TAB; Start 02/19/19 at 09:00 Zinc Sulfate (Zinc Sulfate) 220 mg DAILY PO Last administered on 03/01/19 09:35; Admin Dose 220 MG; Start 02/19/19 at 09:00 Patient Own Medication 1 ea DAILY PRN PO CONSTIPATION Last administered on 03/01/19 09:33; Admin Dose 1 EA; Start 02/19/19 at 12:00 Ascorbic Acid (Vitamin C) 250 mg BID PO Last administered on 03/01/19 09:34; Admin Dose 250 MG; Start 02/22/19 at 21:00 Nystatin (Nystatin Powder) 1 applic BID TOP Last administered on 03/01/19 09:36; Admin Dose 1 APPLIC; Start 02/23/19 at 21:00 Bumetanide (Bumex) 1 mg BID PO Last administered on 03/01/19 09:35; Admin Dose 1 MG; Start 02/26/19 at 21:00 Pregabalin (Lyrica) 200 mg BID PO Last administered on 03/01/19 09:35; Admin Dose 200 MG; Start 02/28/19 at 21:00 Assessment/Plan Additional Assessment/Plan rehab- Critical illness myopathy, debility status post congestive heart failure exacerbation. Continue rehab interdisciplinary program Recent left distal femur fracture status post open reduction internal fixation. Acute on chronic renal failure. Acute on chronic congestive heart failure. Atrial fibrillation. History of non-ST elevation myocardial infarction. History of deep venous thrombosis and pulmonary embolism, status post inferior vena cava filter. Diabetes mellitus type 2. History of aortic aneurysm. Venous stasis changes. Incontinent, Moisture associated dermatitis in the sacral region- improving Right medial malleolus ulceration. FELIPE GRULLON MD March 01, 2019 10:36
[2019-03-01 14:00] VITALS: BP 112/63; PULSE 71; RESP 20
[2019-03-01 20:00] VITALS: BP 127/68; PULSE 52; RESP 18
[2019-03-01] MEDS: traZODone 50 MG TAB PO SCH (20:39)
[2019-03-01] MEDS: ATORVASTATIN 20 MG TAB PO SCH (20:39)
[2019-03-01] MEDS: SENNA TAB PO SCH (20:46)
[2019-03-02] MEDS: IPRATROPIUM (NEB) 0.5 MG/2.5 ML AMP HHN SCH ×4 (01:30→19:52)
[2019-03-02 07:00] VITALS: BP 115/79; PULSE 64; RESP 18
[2019-03-02] MEDS: BUMETANIDE 1 MG TAB PO SCH ×2 (08:46→21:10)
[2019-03-02] MEDS: DOCUSATE SODIUM 100 MG CAP PO SCH ×2 (08:46→21:09)
[2019-03-02] MEDS: OXYBUTYNIN 5 MG TAB PO SCH ×2 (08:47→21:10)
[2019-03-02] MEDS: CYANOCOBALAMIN 500 MCG TAB PO SCH (08:48)
[2019-03-02] MEDS: ROPINIROLE 0.25 MG TAB PO SCH (08:48)
[2019-03-02] MEDS: MULTIVITAMINS THERAPEUTIC TAB PO SCH (08:48)
[2019-03-02] MEDS: PREGABALIN 100 MG CAP PO SCH ×2 (08:48→21:10)
[2019-03-02] MEDS: APIXABAN 5 MG TABLET PO SCH ×2 (08:48→21:09)
[2019-03-02] MEDS: ZINC SULFATE 220 MG CAP PO SCH (08:48)
[2019-03-02] MEDS: ASCORBIC ACID 250 MG TAB PO SCH ×2 (08:48→21:10)
[2019-03-02] MEDS: MEMANTINE 5 MG TAB PO SCH ×2 (08:48→21:09)
[2019-03-02] MEDS: NYSTATIN 30 GM POWDER BTL TOP SCH ×2 (08:49→21:00)
--- NOTE | 2019-03-02 08:53 | PN ---
DATE: 03/02/2019 SUBJECTIVE: The patient is stable, no events overnight. OBJECTIVE: VITAL SIGNS: Blood pressure is 115/79, pulse 64, respiration 18, temperature 98.4. HEENT: Head is normocephalic. NECK: Supple. HEART: Regular rate. LUNGS: Show diminished breath sounds at the base. ABDOMEN: Soft, nontender to palpation without rebound or guarding. EXTREMITIES: Negative for clubbing, cyanosis. Trace edema. DERMATOLOGIC: No rashes. MUSCULOSKELETAL: No joint effusions. NEUROLOGIC: No change in exam. MEDICATIONS: The patient's medications have been reviewed. LABORATORY DATA: Has been reviewed. ASSESSMENT AND PLAN: 1. Acute pulmonary embolism, acute right lower extremity deep venous thrombosis. Patient is stable. Continue Eliquis. 2. Acute respiratory failure secondary to pulmonary embolus and congestive heart failure, improving. 3. Acute on chronic heart failure, improved. Continue current diuretic regimen. 4. Nonoliguric acute kidney injury on top of chronic kidney disease. Etiology is secondary to hemod ynamics. Renal function has fluctuated, but overall stable. Continue to monitor. 5. Coronary artery disease status post coronary artery bypass graft. Continue medical management. 6. Hypertension. Continue current blood pressure regimen. 7. Dyslipidemia. Continue statin therapy. 8. Neuropathy. Continue current treatment plan. 9. Critical care myopathy. Continue physical therapy. 10. Lower extremity wounds. Continue wound care. 11. Constipation. Continue current bowel regimen. 12. Right femoral fracture, status post open reduction internal fixation. 13. History of aortic aneurysm. The patient will require outpatient endovascular repair. 14. Gastrointestinal and deep venous thrombosis prophylaxis. Dictated By: KANDI OKEEFE DO NR/NTS Conf#: [id number] DID#: [id number] CC: MELISSA CARRINGTON DO; FELIPE GRULLON MD;*EndCC*
--- NOTE | 2019-03-02 13:50 | PN ---
Date/Time of Note Date/Time of Note DATE: 03/02/19 TIME: 13:50 Subjective Overall improved Objective Vital Signs Date Temp Pulse Resp B/P (MAP) Pulse Ox O2 O2 Flow FiO2 Time Delivery Rate 03/02/19 82 20 98 Nasal 2.0 08:59 Cannula 03/02/19 98.4 115/79 07:00 (91) Intake and Output 03/01/19 03/01/19 03/02/19 1515:00 23:00 07:00 IntakeIntake Total 300 ml 1060 ml OutputOutput Total 560 ml 1300 ml BalanceBalance 300 ml 500 ml -1300 ml Exam pulm-cta abd-soft min assist transfer Results/Medications Result Diagram: 02/27/19 0853 Medications Current Medications Docusate Sodium (Colace) 100 mg BID PO Last administered on 03/02/19 08:46; Admin Dose 100 MG; Start 02/17/19 at 21:00 Senna (Senokot) 1 tab HS PO Last administered on 02/28/19 21:08; Admin Dose 1 TAB; Start 02/17/19 at 21:00 Magnesium Hydroxide (Milk Of Mag) 30 ml BID PRN PO CONSTIPATION Last administered on 02/21/19 17:09; Admin Dose 30 ML; Start 02/17/19 at 16:30 Lactulose (Enulose) 20 gm DAILY PRN PO CONSTIPATION Last administered on 03/01/19 09:36; Admin Dose 20 GM; Start 02/17/19 at 16:30 Bisacodyl (Dulcolax Supp) 10 mg DAILY PRN [place] CONSTIPATION Last administered on 02/23/19 06:45; Admin Dose 10 MG; Start 02/17/19 at 16:30 Acetaminophen (Tylenol Tab) 650 mg Q4H PRN PO PAIN; Start 02/17/19 at 16:30 Miscellaneous Information (Pending [facility] Order For Wound Care) This patient cornejo... PRN PRN XX WOUND CARE; Start 02/17/19 at 16:30 Apixaban (Eliquis) 5 mg BID PO Last administered on 03/02/19 08:48; Admin Dose 5 MG; Start 02/17/19 at 21:00 Atorvastatin Calcium (Lipitor) 20 mg HS PO Last administered on 03/01/19 20:39; Admin Dose 20 MG; Start 02/17/19 at 21:00 Carvedilol (Coreg) 3.125 mg BID PO Last administered on 03/02/19 08:47; Admin Dose 3.125 MG; Start 02/17/19 at 21:00 Cyanocobalamin (Vitamin B12) 1,000 mcg DAILY PO Last administered on 03/02/19 08:48; Admin Dose 1,000 MCG; Start 02/18/19 at 09:00 Acetaminophen/ Hydrocodone Bitart ([place] (10/325)) 1 tab Q12H PRN PO MODERATE PAIN LEVEL 4-6 Last administered on 02/27/19 12:43; Admin Dose 1 TAB; Start 02/17/19 at 17:00 Ipratropium [place] (Atrovent 0.02% (Neb)) 0.5 mg Q6H RESP THERAPY HHN Last administered on 03/02/19 08:49; Admin Dose 0.5 MG; Start 02/17/19 at 20:00 Memantine (Namenda) 5 mg BID PO Last administered on 03/02/19 08:48; Admin Dose 5 MG; Start 02/17/19 at 21:00 Oxybutynin Chloride (Ditropan) 5 mg BID PO Last administered on 03/02/19 08:47; Admin Dose 5 MG; Start 02/17/19 at 21:00 Trazodone HCl (Desyrel) 150 mg HS PO Last administered on 03/01/19 20:39; Admin Dose 150 MG; Start 02/17/19 at 21:00 Ropinirole HCl (Requip) 0.5 mg DAILY PO Last administered on 03/02/19 08:48; Admin Dose 0.5 MG; Start 02/18/19 at 09:00 Multivitamins Therapeutic (Theragran) 1 tab DAILY PO Last administered on 03/02/19 08:48; Admin Dose 1 TAB; Start 02/19/19 at 09:00 Zinc Sulfate (Zinc Sulfate) 220 mg DAILY PO Last administered on 03/02/19 08:48; Admin Dose 220 MG; Start 02/19/19 at 09:00 Patient Own Medication 1 ea DAILY PRN PO CONSTIPATION Last administered on 03/01/19 09:33; Admin Dose 1 EA; Start 02/19/19 at 12:00 Ascorbic Acid (Vitamin C) 250 mg BID PO Last administered on 03/02/19 08:48; Admin Dose 250 MG; Start 02/22/19 at 21:00 Nystatin (Nystatin Powder) 1 applic BID TOP Last administered on 03/02/19 08:49; Admin Dose 1 APPLIC; Start 02/23/19 at 21:00 Bumetanide (Bumex) 1 mg BID PO Last administered on 03/02/19 08:46; Admin Dose 1 MG; Start 02/26/19 at 21:00 Pregabalin (Lyrica) 200 mg BID PO Last administered on 03/02/19 08:48; Admin Dose 200 MG; Start 02/28/19 at 21:00 Assessment/Plan Additional Assessment/Plan Rehab- Critical Illness Myopathy His 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 Continue treatment plan Acute on Chronic Kidney Disease- Continue current management DM2 DVT/PE/IVC filter CAD/CABG FELIPE MOSCOSO MD March 02, 2019 13:50
[2019-03-02 14:00] VITALS: BP 114/75; PULSE 70; RESP 18
[2019-03-02 20:00] VITALS: BP 122/79; PULSE 66; RESP 18
[2019-03-02] MEDS: SENNA TAB PO SCH (21:09)
[2019-03-02] MEDS: traZODone 50 MG TAB PO SCH (21:09)
[2019-03-02] MEDS: ATORVASTATIN 20 MG TAB PO SCH (21:10)
[2019-03-03 02:00] VITALS: BP 109/63; PULSE 69; RESP 18
[2019-03-03] MEDS: IPRATROPIUM (NEB) 0.5 MG/2.5 ML AMP HHN SCH ×4 (02:00→19:51)
[2019-03-03 07:00] VITALS: BP 125/78; PULSE 68; RESP 18
[2019-03-03] MEDS: ROPINIROLE 0.25 MG TAB PO SCH (08:10)
[2019-03-03] MEDS: CYANOCOBALAMIN 500 MCG TAB PO SCH (08:10)
[2019-03-03] MEDS: DOCUSATE SODIUM 100 MG CAP PO SCH ×2 (08:10→21:13)
[2019-03-03] MEDS: BUMETANIDE 1 MG TAB PO SCH ×2 (08:10→21:12)
[2019-03-03] MEDS: MULTIVITAMINS THERAPEUTIC TAB PO SCH (08:10)
[2019-03-03] MEDS: PREGABALIN 100 MG CAP PO SCH ×2 (08:10→21:12)
[2019-03-03] MEDS: APIXABAN 5 MG TABLET PO SCH ×2 (08:10→21:13)
[2019-03-03] MEDS: OXYBUTYNIN 5 MG TAB PO SCH ×2 (08:11→21:16)
[2019-03-03] MEDS: MEMANTINE 5 MG TAB PO SCH ×2 (08:11→21:12)
[2019-03-03] MEDS: NYSTATIN 30 GM POWDER BTL TOP SCH ×2 (08:12→21:00)
[2019-03-03] MEDS: ZINC SULFATE 220 MG CAP PO SCH (08:14)
[2019-03-03] MEDS: ASCORBIC ACID 250 MG TAB PO SCH ×2 (08:14→21:12)
--- NOTE | 2019-03-03 09:35 | PN ---
DATE: 03/03/2019 SUBJECTIVE: The patient is stable, no events overnight. OBJECTIVE: VITAL SIGNS: Blood pressure is 125/78, pulse 68, respirations 18, temperature 98.6. HEENT: Head is normocephalic. NECK: Supple. HEART: Regular rate. LUNGS: Show diminished breath sounds at the base. ABDOMEN: Soft, nontender to palpation without rebound or guarding. EXTREMITIES: Negative for clubbing, cyanosis, no edema. DERMATOLOGIC: No rashes. MUSCULOSKELETAL: No joint effusion. NEUROLOGIC: No change in exam. MEDICATIONS: Reviewed. LABORATORY DATA: Reviewed. ASSESSMENT AND PLAN: 1. Acute pulmonary embolism, acute right lower extremity deep venous thrombosis. The patient is sta ble. Continue Eliquis. 2. Acute respiratory failure secondary to pulmonary embolism and congestive heart failure, improving . 3. Acute on chronic heart failure, improved. Continue current diuretic regimen. 4. Nonoliguric acute kidney injury on top of chronic kidney disease. Etiology of acute kidney injur y is secondary to hemodynamics. Renal function is fluctuating, but improving. Continue to monitor. 5. Chronic disease status post coronary artery bypass graft. Continue medical management. 6. Hypertension. Continue current blood pressure regimen. 7. Dyslipidemia. Continue statin therapy. 8. Neuropathy. Continue current treatment plan. 9. Critical care myopathy. Continue physical therapy, improving. 10. Lower extremity wounds. Continue wound care. 11. Constipation. Continue current bowel regimen. 12. Right femoral fracture, status post open reduction internal fixation. 13. History of aortic aneurysm. The patient is pending endovascular repair. 14. Gastrointestinal and deep venous thrombosis prophylaxis. Dictated By: KANDI OKEEFE DO NR/NTS Conf#: [id number] DID#: [id number] CC: FELIPE GRULLON MD; MELISSA CARRINGTON DO;*EndCC*
[2019-03-03 14:00] VITALS: BP 121/66; PULSE 61; RESP 18
--- NOTE | 2019-03-03 17:44 | PN ---
Date/Time of Note Date/Time of Note DATE: 03/03/19 TIME: 17:44 Subjective Wants to stay until his abdominal surgery Objective Vital Signs Date Temp Pulse Resp B/P (MAP) Pulse Ox O2 O2 Flow FiO2 Time Delivery Rate 03/03/19 98.8 61 18 121/66 98 Room Air 14:00 (84) 03/03/19 2.0 08:06 Intake and Output 03/02/19 03/02/19 03/03/19 1515:00 23:00 07:00 IntakeIntake Total 1200 ml 300 ml OutputOutput Total 800 ml 1150 ml BalanceBalance 400 ml -850 ml Exam pulm-cta abd-soft min transfer Results/Medications Result Diagram: 02/27/19 0853 Medications Current Medications Docusate Sodium (Colace) 100 mg BID PO Last administered on 03/03/19 08:10; Admin Dose 100 MG; Start 02/17/19 at 21:00 Senna (Senokot) 1 tab HS PO Last administered on 03/02/19 21:09; Admin Dose 1 TAB; Start 02/17/19 at 21:00 Magnesium Hydroxide (Milk Of Mag) 30 ml BID PRN PO CONSTIPATION Last administered on 02/21/19 17:09; Admin Dose 30 ML; Start 02/17/19 at 16:30 Lactulose (Enulose) 20 gm DAILY PRN PO CONSTIPATION Last administered on 03/01/19 09:36; Admin Dose 20 GM; Start 02/17/19 at 16:30 Bisacodyl (Dulcolax Supp) 10 mg DAILY PRN [place] CONSTIPATION Last administered on 02/23/19 06:45; Admin Dose 10 MG; Start 02/17/19 at 16:30 Acetaminophen (Tylenol Tab) 650 mg Q4H PRN PO PAIN; Start 02/17/19 at 16:30 Miscellaneous Information (Pending [facility] Order For Wound Care) This patient cornejo... PRN PRN XX WOUND CARE; Start 02/17/19 at 16:30 Apixaban (Eliquis) 5 mg BID PO Last administered on 03/03/19 08:10; Admin Dose 5 MG; Start 02/17/19 at 21:00 Atorvastatin Calcium (Lipitor) 20 mg HS PO Last administered on 03/02/19 21:10; Admin Dose 20 MG; Start 02/17/19 at 21:00 Carvedilol (Coreg) 3.125 mg BID PO Last administered on 03/03/19 08:11; Admin Dose 3.125 MG; Start 02/17/19 at 21:00 Cyanocobalamin (Vitamin B12) 1,000 mcg DAILY PO Last administered on 03/03/19 08:10; Admin Dose 1,000 MCG; Start 02/18/19 at 09:00 Acetaminophen/ Hydrocodone Bitart ([place] (10/325)) 1 tab Q12H PRN PO MODERATE PAIN LEVEL 4-6 Last administered on 02/27/19 12:43; Admin Dose 1 TAB; Start 02/17/19 at 17:00 Ipratropium [place] (Atrovent 0.02% (Neb)) 0.5 mg Q6H RESP THERAPY HHN Last administered on 03/03/19 08:05; Admin Dose 0.5 MG; Start 02/17/19 at 20:00 Memantine (Namenda) 5 mg BID PO Last administered on 03/03/19 08:11; Admin Dose 5 MG; Start 02/17/19 at 21:00 Oxybutynin Chloride (Ditropan) 5 mg BID PO Last administered on 03/03/19 08:11; Admin Dose 5 MG; Start 02/17/19 at 21:00 Trazodone HCl (Desyrel) 150 mg HS PO Last administered on 03/02/19 21:09; Admin Dose 150 MG; Start 02/17/19 at 21:00 Ropinirole HCl (Requip) 0.5 mg DAILY PO Last administered on 03/03/19 08:10; Admin Dose 0.5 MG; Start 02/18/19 at 09:00 Multivitamins Therapeutic (Theragran) 1 tab DAILY PO Last administered on 03/03/19 08:10; Admin Dose 1 TAB; Start 02/19/19 at 09:00 Zinc Sulfate (Zinc Sulfate) 220 mg DAILY PO Last administered on 03/02/19 08:48; Admin Dose 220 MG; Start 02/19/19 at 09:00 Patient Own Medication 1 ea DAILY PRN PO CONSTIPATION Last administered on 03/01/19 09:33; Admin Dose 1 EA; Start 02/19/19 at 12:00 Ascorbic Acid (Vitamin C) 250 mg BID PO Last administered on 03/02/19at 21:10; Admin Dose 250 MG; Start 02/22/19 at 21:00 Nystatin (Nystatin Powder) 1 applic BID TOP Last administered on 03/03/19 08:12; Admin Dose 1 APPLIC; Start 02/23/19 at 21:00 Bumetanide (Bumex) 1 mg BID PO Last administered on 03/03/19 08:10; Admin Dose 1 MG; Start 02/26/19 at 21:00 Pregabalin (Lyrica) 200 mg BID PO Last administered on 03/03/19 08:10; Admin Dose 200 MG; Start 02/28/19 at 21:00 Assessment/Plan Additional Assessment/Plan rehab- Critical illness myopathy, debility status post congestive heart failure exacerbation. Continue rehab, anticipate home at end of week AAA Recent left distal femur fracture status post open reduction internal fixation. Acute on chronic renal failure. Acute on chronic congestive heart failure. Atrial fibrillation. History of non-ST elevation myocardial infarction. History of deep venous thrombosis and pulmonary embolism, status post inferior vena cava filter. Diabetes mellitus type 2. History of aortic aneurysm. Venous stasis changes. Incontinent, Moisture associated dermatitis in the sacral region- improving Right medial malleolus ulceration. FELIPE GRULLON MD March 03, 2019 17:44
[2019-03-03 20:00] VITALS: BP 116/60; PULSE 78; RESP 16
[2019-03-03] MEDS: traZODone 50 MG TAB PO SCH (21:11)
[2019-03-03] MEDS: SENNA TAB PO SCH (21:12)
[2019-03-03] MEDS: ATORVASTATIN 20 MG TAB PO SCH (21:13)
[2019-03-04] MEDS: IPRATROPIUM (NEB) 0.5 MG/2.5 ML AMP HHN SCH ×4 (01:58→20:19)
[2019-03-04 06:00] VITALS: BP 141/71; PULSE 62; RESP 16
[2019-03-04 08:00] VITALS: BP 126/75; PULSE 62; RESP 18
[2019-03-04] MEDS: ZINC SULFATE 220 MG CAP PO SCH (08:12)
[2019-03-04] MEDS: ROPINIROLE 0.25 MG TAB PO SCH (08:12)
[2019-03-04] MEDS: CYANOCOBALAMIN 500 MCG TAB PO SCH (08:12)
[2019-03-04] MEDS: APIXABAN 5 MG TABLET PO SCH ×2 (08:12→20:52)
[2019-03-04] MEDS: PREGABALIN 100 MG CAP PO SCH ×2 (08:12→20:52)
[2019-03-04] MEDS: BUMETANIDE 1 MG TAB PO SCH ×2 (08:12→20:52)
[2019-03-04] MEDS: DOCUSATE SODIUM 100 MG CAP PO SCH ×2 (08:13→20:52)
[2019-03-04] MEDS: MEMANTINE 5 MG TAB PO SCH ×2 (08:13→20:52)
[2019-03-04] MEDS: OXYBUTYNIN 5 MG TAB PO SCH ×2 (08:13→20:52)
[2019-03-04] MEDS: ASCORBIC ACID 250 MG TAB PO SCH ×2 (08:13→20:50)
[2019-03-04] MEDS: MULTIVITAMINS THERAPEUTIC TAB PO SCH (08:13)
[2019-03-04] MEDS: NYSTATIN 30 GM POWDER BTL TOP SCH ×2 (08:13→20:54)
--- NOTE | 2019-03-04 10:42 | PN ---
DATE: 03/04/2019 SUBJECTIVE: The patient is stable, no events overnight. OBJECTIVE: VITAL SIGNS: Blood pressure is 126/75, pulse 62, respirations 18, temperature 98.3. HEENT: Head is normocephalic. NECK: Supple. HEART: Regular rate. LUNGS: Show diminished breath sounds at the base. ABDOMEN: Soft, nontender to palpation without rebound or guarding. EXTREMITIES: Negative for clubbing, cyanosis, trace edema. DERMATOLOGIC: No rashes. MUSCULOSKELETAL: No joint effusion. NEUROLOGIC: No change in exam. MEDICATIONS: Reviewed. LABORATORY DATA: Reviewed. ASSESSMENT AND PLAN: 1. Acute pulmonary embolism, acute right lower extremity deep venous thrombosis. The patient is sta ble. Continue Eliquis. 2. Acute respiratory failure secondary to pulmonary embolism, congestive heart failure, improving. 3. Acute on chronic heart failure, improving. Continue current diuretic regimen. 4. Nonoliguric acute kidney injury on top of chronic kidney disease. Etiology of acute kidney injur y is secondary to hemodynamics. Renal function is fluctuating, but improving. Continue to monitor. 5. Coronary artery disease with history of coronary artery bypass graft. Continue medical managemen t. 6. Hypertension. Continue current blood pressure regimen. 7. Dyslipidemia. Continue statin therapy. 8. Neuropathy. Continue current treatment plan. 9. Critical care myopathy. Continue physical therapy. 10. Lower extremity wounds. Continue wound care. 11. Constipation. Continue current bowel regimen. 12. Right femoral fracture. The patient is status post open reduction internal fixation. 13. History of aortic aneurysm. The patient is pending endovascular repair, possibly Friday at [facility]. 14. Gastrointestinal and deep vein thrombosis prophylaxis. Dictated By: KANDI OKEEFE DO NR/NTS Conf#: [id number] DID#: [id number] CC: FELIPE GRULLON MD; MELISSA CARRINGTON DO;*EndCC*
--- NOTE | 2019-03-04 12:34 | PN ---
Date/Time of Note Date/Time of Note DATE: 03/04/19 TIME: 12:34 Objective Vital Signs Date Temp Pulse Resp B/P (MAP) Pulse Ox O2 O2 Flow FiO2 Time Delivery Rate 03/04/19 65 19 96 Nasal 2.0 10:57 Cannula 03/04/19 98.3 126/75 08:00 (92) Intake and Output 03/03/19 03/03/19 03/04/19 1515:00 23:00 07:00 IntakeIntake Total 1000 ml 480 ml 300 ml OutputOutput Total 600 ml 600 ml 650 ml BalanceBalance 400 ml -120 ml -350 ml Exam INTERDISCIPLINARY TEAM CONFERENCE Attended by PT, OT, ST, Dish Cloth Inspector, Social Work, Rehabilitation Nursing, Property Manager and Account Development ExecutiveCasting Sorter Exam: Pulm- cta BOWEL- Cont BLADDER-Cont SKIN- improving OT- DRESSING-sba ub/mod BATHING-sba ub/mod TOILETING- min PT- BED MOBILITY-min TRANSFERS-min WHEELCHAIR- mi A/P- Interdisciplinary team conference held today. Please see interdisciplinary sheet. Working toward d.c. on 03/05 with post discharge follow up of physical therapy, occupational therapy. various safe disposition options reviewed with patient, multiple times, including option of continued therapies at SNF level. Patient declined any other dispo option other than home. He reports he will have caregiver assistance, in addition to his . Results/Medications Medications Current Medications Docusate Sodium (Colace) 100 mg BID PO Last administered on 03/04/19 08:13; Admin Dose 100 MG; Start 02/17/19 at 21:00 Senna (Senokot) 1 tab HS PO Last administered on 03/03/19 21:12; Admin Dose 1 TAB; Start 02/17/19 at 21:00 Magnesium Hydroxide (Milk Of Mag) 30 ml BID PRN PO CONSTIPATION Last administered on 02/21/19 17:09; Admin Dose 30 ML; Start 02/17/19 at 16:30 Lactulose (Enulose) 20 gm DAILY PRN PO CONSTIPATION Last administered on 03/01 09:36; Admin Dose 20 GM; Start 02/17/19 at 16:30 Bisacodyl (Dulcolax Supp) 10 mg DAILY PRN [place] CONSTIPATION Last administered on 02/23/19at 06:45; Admin Dose 10 MG; Start 02/17/19 at 16:30 Acetaminophen (Tylenol Tab) 650 mg Q4H PRN PO PAIN; Start 02/17/19 at 16:30 Miscellaneous Information (Pending [facility] Order For Wound Care) This patient cornejo... PRN PRN XX WOUND CARE; Start 02/17/19 at 16:30 Apixaban (Eliquis) 5 mg BID PO Last administered on 03/04/19 08:12; Admin Dose 5 MG; Start 02/17/19 at 21:00 Atorvastatin Calcium (Lipitor) 20 mg HS PO Last administered on 03/03/19 21:13; Admin Dose 20 MG; Start 02/17/19 at 21:00 Carvedilol (Coreg) 3.125 mg BID PO Last administered on 03/04/19 08:12; Admin Dose 3.125 MG; Start 02/17/19 at 21:00 Cyanocobalamin (Vitamin B12) 1,000 mcg DAILY PO Last administered on 03/04/19 08:12; Admin Dose 1,000 MCG; Start 02/18/19 at 09:00 Acetaminophen/ Hydrocodone Bitart ([place] (10/325)) 1 tab Q12H PRN PO MODERATE PAIN LEVEL 4-6 Last administered on 02/27/19 12:43; Admin Dose 1 TAB; Start 02/17/19 at 17:00 Ipratropium [place] (Atrovent 0.02% (Neb)) 0.5 mg Q6H RESP THERAPY HHN Last administered on 03/04/19 10:53; Admin Dose 0.5 MG; Start 02/17/19 at 20:00 Memantine (Namenda) 5 mg BID PO Last administered on 03/04/19 08:13; Admin Dose 5 MG; Start 02/17/19 at 21:00 Oxybutynin Chloride (Ditropan) 5 mg BID PO Last administered on 03/04/19 08:1 3; Admin Dose 5 MG; Start 02/17/19 at 21:00 Trazodone HCl (Desyrel) 150 mg HS PO Last administered on 03/03/19 21:11; Admin Dose 150 MG; Start 02/17/19 at 21:00 Ropinirole HCl (Requip) 0.5 mg DAILY PO Last administered on 03/04/19 08:12; Admin Dose 0.5 MG; Start 02/18/19 at 09:00 Multivitamins Therapeutic (Theragran) 1 tab DAILY PO Last administered on 03/04/19 08:13; Admin Dose 1 TAB; Start 02/19/19 at 09:00 Zinc Sulfate (Zinc Sulfate) 220 mg DAILY PO Last administered on 03/04/19 08:12; Admin Dose 220 MG; Start 02/19/19 at 09:00 Patient Own Medication 1 ea DAILY PRN PO CONSTIPATION Last administered on 03/01/19 09:33; Admin Dose 1 EA; Start 02/19/19 at 12:00 Ascorbic Acid (Vitamin C) 250 mg BID PO Last administered on 03/04/19 08:13; Admin Dose 250 MG; Start 02/22/19 at 21:00 Nystatin (Nystatin Powder) 1 applic BID TOP Last administered on 03/04/19 08:13; Admin Dose 1 APPLIC; Start 02/23/19 at 21:00 Bumetanide (Bumex) 1 mg BID PO Last administered on 03/04/19 08:12; Admin Dose 1 MG; Start 02/26/19 at 21:00 Pregabalin (Lyrica) 200 mg BID PO Last administered on 03/04/19 08:12; Admin Dose 200 MG; Start 02/28/19 at 21:00 FELIPE GRULLON MD March 04, 2019 12:34
[2019-03-04 14:00] VITALS: BP 102/58; PULSE 81; RESP 18
[2019-03-04 20:00] VITALS: BP 139/76; PULSE 79; RESP 18
[2019-03-04] MEDS: traZODone 50 MG TAB PO SCH (20:52)
[2019-03-04] MEDS: SENNA TAB PO SCH (20:52)
[2019-03-04] MEDS: ATORVASTATIN 20 MG TAB PO SCH (20:52)
[2019-03-05] MEDS: IPRATROPIUM (NEB) 0.5 MG/2.5 ML AMP HHN SCH ×2 (01:44→08:54)
[2019-03-05 08:00] VITALS: BP 125/84; PULSE 75; RESP 20
[2019-03-05] MEDS: PATIENT'S OWN MEDICATION PO PRN (08:25)
[2019-03-05] MEDS: PREGABALIN 100 MG CAP PO SCH (08:26)
[2019-03-05] MEDS: ROPINIROLE 0.25 MG TAB PO SCH (08:26)
[2019-03-05] MEDS: BUMETANIDE 1 MG TAB PO SCH (08:26)
[2019-03-05] MEDS: OXYBUTYNIN 5 MG TAB PO SCH (08:26)
[2019-03-05] MEDS: MULTIVITAMINS THERAPEUTIC TAB PO SCH (08:27)
[2019-03-05] MEDS: DOCUSATE SODIUM 100 MG CAP PO SCH (08:27)
[2019-03-05] MEDS: ZINC SULFATE 220 MG CAP PO SCH (08:27)
[2019-03-05] MEDS: CYANOCOBALAMIN 500 MCG TAB PO SCH (08:27)
[2019-03-05] MEDS: APIXABAN 5 MG TABLET PO SCH (08:27)
[2019-03-05] MEDS: ASCORBIC ACID 250 MG TAB PO SCH (08:27)
[2019-03-05] MEDS: MEMANTINE 5 MG TAB PO SCH (08:27)
[2019-03-05] MEDS: NYSTATIN 30 GM POWDER BTL TOP SCH (08:28)
--- NOTE | 2019-03-05 10:29 | DS ---
Date/Time of Note Date/Time of Note DATE: 03/05/19 TIME: 10:26 Discharge Summary Admission/Discharge Info Admit Date/Time February 17, 2019 at 15:45 Discharge Date/Time Discharge Diagnosis 1. Critical illness myopathy, debility status post congestive heart failure e xacerbation. 2. Recent left distal femur fracture status post open reduction internal fixation. 3. Acute on chronic renal failure. 4. Acute on chronic congestive heart failure. 5. Atrial fibrillation;History of non-ST elevation myocardial infarction. 6. History of deep venous thrombosis and pulmonary embolism, status post inferior vena cava filter. 7. Diabetes mellitus type 2. 8. History of aortic aneurysm. 9. Venous stasis changes. 10. Incontinent dermatitis in the sacral region, improved 11. Right medial malleolus ulceration. 12. Improvements in self-care and mobility. Patient Condition: Good Hospital Course The patient was admitted for comprehensive interdisciplinary rehabilitation and made steady functional gains from a Max of 2 people to a min level for self care tasks and mobility including transfers, and MD for wheelchair mobility. Various dispo options were reviewed with patient, and he declined all except discharge home. Patient is being discharged home with the recommendation of home health PT, OT , RN and bath aide follow up. The DC meds are per the medication reconciliation sheet. The discharge equipment recommendations include: FWW, BSC, shower chair. The patient will follow up with PMD upon DC. Home Meds Active Scripts Front Wheel Walker* (Front Wheel Walker*) 1 Each Dme, 1 EACH [facility] DIRECTED, #1 DME 0 Refills Prov:KAZ HERNANDEZ 05/19/15 3 N 1 Commode* (3 N 1 Commode*) 1 Each Dme, 1 EACH MC DIRECTED, #1 DME 0 Refills Prov:KAZ HERNANDEZ 05/19/15 Warfarin Sodium* (Coumadin*) 10 Mg Tablet, 10 MG PO DAILY PRN for PAIN, #90 TAB Prov:KAZ HERNANDEZ 05/19/15 Tramadol HCl (Tramadol HCl) 50 Mg Tab, 50 MG PO Q6, #60 TAB Prov:KAZ HERNANDEZ 05/19/15 Hydrocodone Bit-Acetaminophen (Hydrocodone-APAP) 1 Tab Tab, 1 TAB PO Q4H PRN for PAIN LEVEL 1-5, #90 Prov:KAZ HERNANDEZ 05/19/15 Pregabalin* (Lyrica*) 100 Mg Cap, 400 MG PO DAILY, #60 Prov:KAZ HERNANDEZ 05/19/15 Na Phos,M-B/Na Phos,Di-Ba (Bl Enema Single) 133 Ml Soln, 133 ML [place] DAILY PRN for CONSTIPATION, #60 ENEMA Prov:KAZ HERNANDEZ 05/19/15 Docusate Sodium* (Colace*) 100 Mg Cap, 100 MG PO BID, #60 Prov:KAZ HERNANDEZ 05/19/15 Diphenhydramine Hcl* (Benadryl*) 25 Mg Cap, 25 MG PO Q6H PRN for PRURITUS, #60 CAP Prov:KAZ HERNANDEZ 05/19/15 Bisacodyl* (Bisacodyl*) 10 Mg Supp, 10 MG [place] Q12H PRN for CONSTIPATION, #30 SUPP Prov:KAZ HERNANDEZ 05/19/15 Reported Medications Lactobacillus Combo No.11 (Probiotic) 1 Each Cap.sprink, 1 CAP PO DAILY, CAP 05/16/15 Lorazepam* (Lorazepam*) 1 Mg Tablet, 1 MG PO HS PRN for SLEEP, TAB 05/16/15 Losartan Potassium* (Losartan Potassium*) 25 Mg Tablet, 25 MG PO DAILY, TAB 05/16/15 Donepezil* (Donepezil*) 5 Mg Tablet, 10 MG PO DAILY, TAB 01/19/15 Carvedilol* (Carvedilol*) 3.125 Mg Tablet, 3.125 MG PO BID, TAB 01/19/15 Atorvastatin Calcium* (Atorvastatin Calcium*) 20 Mg Tablet, 20 MG PO HS, TAB 01/19/15 Topiramate* (Topamax*) 100 Mg Tablet, 100 MG PO HS 06/10/13 Primary Care Provider MD MITCHEL Garvin LIVA L. MD March 05, 2019 10:29
--- NOTE | 2019-03-05 11:39 | PN ---
DATE: 03/05/2019 SUBJECTIVE: The patient is stable. No events overnight. The patient is pending discharge today and will have followup evaluation at [facility] for embolization of aortic aneurysm. No othe r events noted. OBJECTIVE: VITAL SIGNS: Blood pressure is 139/76, pulse 86, respirations 18, temperature 98.3. HEENT: Head is normocephalic. NECK: Supple. HEART: Regular rate. LUNGS: Show diminished breath sounds at the base. ABDOMEN: Soft, nontender to palpation. No rebound or guarding. EXTREMITIES: Negative for clubbing, cyanosis, no edema. DERMATOLOGIC: No rashes. MUSCULOSKELETAL: No joint effusion. NEUROLOGIC: No change in exam. MEDICATIONS: Reviewed. LABORATORY DATA: Reviewed. ASSESSMENT AND PLAN: 1. Acute pulmonary embolism, acute right lower extremity deep venous thrombosis. The patient is cur rently stable. Continue Eliquis. 2. Acute respiratory failure secondary to pulmonary embolism, congestive heart failure, improving. 3. Acute on chronic heart failure, improved. The patient is currently compensated. Continue curren t diuretic regimen. 4. Nonoliguric acute kidney injury on top of chronic kidney disease. Etiology is secondary to hemod ynamics. Renal function is improved. Continue to monitor. 5. Coronary artery disease status post coronary artery bypass graft. Continue medical management. 6. Hypertension. Continue current blood pressure regimen. 7. Dyslipidemia. Continue statin therapy. 8. Neuropathy. Continue current treatment plan. 9. Critical care myopathy. Continue physical therapy. 10. Lower extremity wounds. Continue wound care. 11. Constipation. Continue current bowel regimen. 12. Status post right hip arthroplasty. Continue to monitor. 13. History of aortic aneurysm. The patient is pending outpatient endovascular repair. 14. Gastrointestinal and deep vein thrombosis prophylaxis. Dictated By: KANDI OKEEFE DO NR/NTS Conf#: [id number] DID#: [id number] CC: FELIPE GRULLON MD; MELISSA CARRINGTON DO;*EndCC*
== END 2019-03-05 14:30 | disposition home health service (06) | DRG 91 ==
LOC: VRC 15:45
PROVIDERS: ADMIT Physical Medicine & Rehabilitation; ATTEND Internal Medicine Nephrology
PROC: F07Z5ZZ Bed Mobility Treatment (ICD-10-PCS; principal; 2019-02-17)
PROC: F08Z2ZZ Grooming/Personal Hygiene Treatment (ICD-10-PCS; 2019-02-17)
PROC: 3E0F7GC Introduction of Other Therapeutic Substance into Respiratory Tract, Via Natural or Artificial Opening (ICD-10-PCS; 2019-02-17)
DX: G72.81 Critical illness myopathy (principal); J96.01 Acute respiratory failure with hypoxia; I26.99 Other pulmonary embolism without acute cor pulmonale; I50.33 Acute on chronic diastolic (congestive) heart failure; L97.319 Non-pressure chronic ulcer of right ankle with unspecified severity; I82.4Z1 Acute embolism and thrombosis of unspecified deep veins of right distal lower extremity; I13.0 Hypertensive heart and chronic kidney disease with heart failure and stage 1 through stage 4 chronic kidney disease, or unspecified chronic kidney disease; N17.9 Acute kidney failure, unspecified; R53.81 Other malaise; Z86.718 Personal history of other venous thrombosis and embolism; I25.2 Old myocardial infarction; I48.91 Unspecified atrial fibrillation; L30.9 Dermatitis, unspecified; E11.622 Type 2 diabetes mellitus with other skin ulcer; Z95.1 Presence of aortocoronary bypass graft; E78.5 Hyperlipidemia, unspecified; I25.10 Atherosclerotic heart disease of native coronary artery without angina pectoris; E11.40 Type 2 diabetes mellitus with diabetic neuropathy, unspecified; E11.22 Type 2 diabetes mellitus with diabetic chronic kidney disease; N18.9 Chronic kidney disease, unspecified; S72.402D Unspecified fracture of lower end of left femur, subsequent encounter for closed fracture with routine healing; X58.XXXD Exposure to other specified factors, subsequent encounter; I11.0 Hypertensive heart disease with heart failure; K59.00 Constipation, unspecified; Z79.01 Long term (current) use of anticoagulants
CPT/HCPCS: 71045; 80048; 80053; 81003; 83735; 84100; 85025; 87081; 87086; 94640; 94664; 97110; 97112; 97163; 97167; 97530; 97535; 97542